=== PATIENT | female | born 1970 | race Caucasian/White ===

== ENCOUNTER 2025-03-25 12:09 | Emergency (ER) | payer BC, SELFPAY ==
--- OUTSIDE RECORDS SUMMARY | 2025-03-17 10:45 | XMS_ITS | Encounter Summary ---
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 Shaper Name Role Phone Chari Drake PROPERTY MAN Primary Care Provider [phone] Reason for Visit * Reason Comments Sore Throat Cough Encounter Details Date Type Department Care Team (Late st Contact Info) Description 03/17/2025 10:45 AM EST Office Visit [facility] [address] [place] [phone] Chari Drake, PROPERTY MAN [address] [place] [address] Sore throat (Primary Dx); Viral syndrome Social History Tobacco Use Types Packs/Day Years Used Date Smoking Tobacco: Every Day Cigarettes 1 40 Smokeless Tobacco: Never Alcohol Use Standard Drinks/Week Comments Yes 0 (1 standard drink = 0.6 oz pur e alcohol) occasional PHQ-2 Answer Date Recorded Retired PHQ-9: Brief Depression Severity Measure Score 0 06/09/2022 PHQ-2 Answer Date Recorded Patient Health Questionnaire-2 Score 0 06/09/2024 Comments No Sex and Gender Information Value Date Recorded Sex Assigned at Not on file Legal Sex Female 2:51 PM EDT Gender Identity Not on file Sexual Orientation Not on file documented as of this encounter Last Filed Vital Signs Vital Sign Reading Time Taken Comments Blood Pressure 132/84 03/17/2025 10:45 AM EST Pulse 64 03/17/2025 10:45 AM EST Temperature 36.3 C (97.3 F) 03/17/2025 10:45 AM EST Respiratory Rate 16 03/17/2025 10:45 AM EST Oxygen Saturation 96% 03/17/2025 10:45 AM EST Inhaled Oxygen Concentration - - Weight 66.2 kg (146 lb) 03/17/2025 10:45 AM EST Height 167.6 cm (5' 6 ) 03/17/2025 10:45 AM EST Body Mass Index 23.57 03/17/2025 10:45 AM EST documented in this encounter Progress Notes * Chari Drake Kevin, PROPERTY MAN - 03/17/2025 10:45 AM EST Images from the original note were not included. Office Note Name: Mariel Philippe : 1970 Chief Complaint Sore Throat and Cough Subjective History of Present Illness The patient is a 55-year-old female who presents for evaluation of a cough and sore throat. She began experiencing symptoms of a cough and sore throat 3 days ago, which have been severe enough to cause her to miss 2 days of work. She also reports nausea and upper respiratory discomfort. Despite taking [id number] flu medication, she has not found relief from her symptoms. SOCIAL HISTORY She admits to smoking cigarettes. Objective Past Medical History: Diagnosis Date Anxiety Depression Hypercholesteremia Hypertension Past Surgical History: Procedure Laterality Date CYST REMOVAL TUMOR REMOVAL Right right side Family History Problem Relation Name Age of Onset Dementia Mother Diabetes Mother Hypertension Mother Depression Mother Vital Signs BP 132/84 (BP Location: Left arm, Patient Position: Sitting, Cuff Size: Adult) Pulse 64 Temp 97.3 ??F (36.3 ??C) (Temporal) Resp 16 Ht 167.6 cm (66 ) Wt 66.2 kg (146 lb) SpO2 96% BMI 23.57 kg/m?? Estimated body mass index is 23.57 kg/m?? as calculated from the following: Height as of this encounter: 167.6 cm (66 ). Weight as of this encounter: 66.2 kg (146 lb). Facility age limit for growth %ziyad is 20 years. Physical Exam Vitals reviewed. Constitutional: Appearance: Normal appearance. HENT: Head: Normocephalic and atraumatic. Right Ear: Tympanic membrane, ear canal and external ear normal. Left Ear: Tympanic membrane, ear canal and external ear normal. Nose: Congestion present. Mouth/Throat: Pharynx: Oropharynx is clear. Posterior oropharyngeal erythema present. Cardiovascular: Rate and Rhythm: Normal rate and regular rhythm. Pulses: Normal pulses. Heart sounds: Normal heart sounds. Pulmonary: Effort: Pulmonary effort is normal. Breath sounds: Normal breath sounds. Musculoskeletal: Cervical back: Neck supple. Skin: General: Skin is warm and dry. Neurological: Mental Status: She is alert and oriented to person, place, and time. POCT Results (if applicable): Results for orders placed or performed in visit on 03/17/25 Covid-19 + Flu A&B AG, Veritor Collection Time: 03/17/25 10:56 AM Specimen: Swab Result Value Ref Range SARS Antigen Not Detected Not Detected, Presumptive Negative Influenza A Antigen TERE Not Detected Not Detected Influenza B Antigen TERE Not Detected Not Detected Internal Control Passed Passed Lot Number [id number] Expiration Date POC Rapid Strep A Collection Time: 03/17/25 10:57 AM Specimen: Swab Result Value Ref Range Rapid Strep A Screen Negative Negative, VALID, INVALID, Not Performed Internal Control Passed Passed Lot Number [id number] Expiration Date Assessment and Plan Diagnoses and all orders for this visit: 1. Sore throat (Primary) - Covid-19 + Flu A&B AG, Veritor - POC Rapid Strep A 2. Viral syndrome - benzonatate (Tessalon Perles) 100 MG capsule; Take 1 capsule by mouth 3 (Three) Times a Day As Needed for Cough. Dispense: 20 capsule; Refill: 0 - fluticasone (FLONASE) 50 MCG/ACT nasal spray; Administer 2 sprays into the nostril(s) as directedby provider Daily. Dispense: 11.1 g; Refill: 0 - methylPREDNISolone (MEDROL) 4 MG dose pack; Take as directed on package instructions. Dispense: 21 tablet; Refill: 0 Assessment & Plan 1. Viral upper respiratory infection. Her symptoms, including coughing and sore throat, are indicative of a viral upper respiratory infection. All tests have returned negative results. A prescription for Tessalon Perles will be sent to [facility] to manage her cough. Additionally, Flonase will be prescribed to alleviate sinus pressure. A short course of steroids will also be provided to further assist in controlling the cough. A work note will be issued for the days she was absent, specifically Thursday, Thursday, and tomorrow. BMI is within normal parameters. No other follow-up for BMI required. Follow Up No follow-ups on file. 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 03/17/2025 12:50 EST Chari Drake APRN documented in this encounter Plan of Treatment Not on file documented as of this encounter Procedures Procedure Name Priority Date/Time Associated Diagnosis Comments POCT RAPID STREP A Routine 03/17/2025 10 :57 AM EST Sore throat COVID-19 + FLU A&B AG, VERITOR Routine 03/17/2025 10:56 AM EST Sore throat documented in this encounter Results * POC Rapid Strep A (03/17/2025 10:57 AM EST) [facility] Rapid Strep A Screen Negative Negative, VALID, INVALID, Not Performed [facility] Internal Control Passed Passed [facility] Lot Number [id number] [facility] Expiration Date [facility] Swab 03/17/2025 10:5 7 AM EST Chari Drake APRN POINT OF CARE TEST ORDERABL ES Final Result [facility]
[address] [place] [address], * Covid-19 + Flu A&B AG, Veritor (03/17/2025 10:56 AM EST) Pathologist [facility] SARS Antigen Not Detected Not Detected, Presumptive Negative Influenza A Antigen TERE Not Detected Not Detected Influenza B Antigen TERE Not Detected Not Detected Internal Control Passed Passed Lot Number [id number] Expiration Date Swab 03/17/2025 10:5 6 AM EST us Chari Drake PROPERTY MAN POINT OF CARE TEST ORDERABL ES Final Result documented in this encounter Visit Diagnoses Diagnosis Sore throat- Primary Acute pharyngitis Viral syndrome Unspecified viral infection, in conditions classified elsewhere and of unspecified site documented in this encounter Additional Health Concerns Infection Onset Date Last Indicated Resolved Time COVID (rule out) 03/17/2025 03/17/2025 03/17/2025 10:57 AM EST documented as of this encounter Care Teams Baseball Glove Shaper Relationship Specialty Start Date End Date Chari Drake, PROPERTY MAN [address] [place] [phone] PCP - General Family Medicine 03/17/22 documented as of this encounter
--- OUTSIDE RECORDS SUMMARY | 2025-03-22 18:30 | XMS_ITS | Continuity of Care Document ---
Author Organization [facility] Phone Care Team Providers Care Biscuitware Brusher Name Role Phone ZOHAIB CONTRERAS Unavailable WILL BUNCH Primary Care ZOHAIB CONTRERAS Admitting ZOHAIB CONTRERAS Primary Attending ALLERGIES AND ADVERSE REACTIONS ALLERGIES AND ADVERSE REACTIONS Code System Allergy Substance Adverse Reaction Date Reaction (Severity) Comment Status Reported By Updated By No Known Allergies [id number] on March 22, 2025 4:43:56 PM UT ASSESSMENTS Cerebrovascular accident ; Right foot drop ; PROBLEMS PATIENT PROBLEMS Code Description/Comments Category Status Upda nasim By [id number] Cerebrovascular accident active [id number] on March 21, 2025 1:28:32 PM UT [id number] Right foot drop active [id number] on March 22, 2025 7:07:57 PM UT RESULTS Patient: JEFF SEBASTIAN Date of : 1970 LABORATORY RESULTS ORDER 100: CBC AUTO W DIFF ( LOINC: 08196-0) ORDER DATE: March 21, 2025 11:16:00 AM UT Specimen Source: Whole Blood Specimen Type: Whole blood s ample PERFORMING LAB: [facility] [id number] Result Comment: Final Result Date: March 21, 2025 11:37:00 AM UT (TECH: LT) LOINC TEST FLAG RESULT REFERENCE RANGE UPDA NASIM BY 6690-2 Leukocytes [#/volume] in Blood by Automated count N 6.1 10^3/uL 4.5 10^3/uL - 11.5 10^3/uL March 21, 2025 11:37:00 AM UTC (TECH: LT) 789-8 Erythrocytes [#/volume] in Blood by Automated count L 3.51 10^6/uL 4.25 10^6/uL - 5.57 10^6/uL March 21, 2025 11:37:00 AM UTC (TECH: LT) 718-7 Hemoglobin [Mass/volume] in Blood L 11.9 g/dL 12.0 g/dL - 15.7 g/dL March 21, 2025 11:37:00 AM UTC (TECH: LT) 35349-7 Hematocrit [Volume Fraction] of Blood N 36.1 % 36.0 % - 47.0 % March 21, 2025 11:37:00 AM UTC (TECH: LT) 787-2 Erythrocyte mean corpuscular volume [Entitic volume] by Automated count H 102.8 fl 80 fl - 95 fl March 21, 2025 11:37:00 AM UTC (TECH: LT) 43354-7 Erythrocyte mean corpuscular hemoglobin [Entitic mass] in Blood from Fetus by Automated count N 33.9 pg 27.0 pg - 34.0 pg March 21, 2025 11:37:00 AM UTC (TECH: LT) 26910-2 Erythrocyte mean corpuscular hemoglobin concentration [Mass/volume] in Blood from Fetus by Automated count N 33.0 g/dL 32.0 g/dL - 36.0 g/dL March 21, 2025 11:37:00 AM UTC (TECH: LT) 69118-0 Platelets [#/volume] in Blood N 218 10^3/uL 150 10^3/uL - 450 10^3/uL March 21, 2025 11:37:00 AM UTC (TECH: LT) 04882-8 Erythrocyte distribution width [Ratio] N 14.1 % 12.3 % - 15.1 % March 21, 2025 11:37:00 AM UTC (TECH: LT) 09551-7 Platelet mean volume [Entitic volume] in Blood by Automated count N 10.0 fl 7.4 fl - 10.4 fl March 21, 2025 11:37:00 AM UTC (TECH: LT) 13895-2 Granulocytes/100 leukocytes in Blood by Automated count N 73.6 % 40 % - 75 % March 21, 2025 11:37:00 AM UTC (TECH: LT) 736-9 Lymphocytes/100 leukocytes in Blood by Automated count N 20.3 % 15 % - 57 % March 21, 2025 11:37:00 AM UTC (TECH: LT) 5905-5 Monocytes/100 leukocytes in Blood by Automated count N 5.2 % 4.0 % - 12.0 % March 21, 2025 11:37:00 AM UTC (TECH: LT) 713-8 Eosinophils/100 leukocytes in Blood by Automated count N 0.2 % 0.0 % - 4.0 % March 21, 2025 11:37:00 AM UTC (TECH: LT) 706-2 Basophils/100 leukocytes in Blood by Automated count N 0.2 % 0.0 % - 1.0 % March 21, 2025 11:37:00 AM UTC (TECH: LT) 92796-7 Immature granulocytes [#/volume] in Blood N 0.5 % 0.0 % - 0.8 % March 21, 2025 11:37:00 AM UTC (TECH: LT) 52526-8 Granulocytes [#/volume] in Blood by Automated count N 4.49 10^3/uL March 21, 2025 11:37:00 AM UTC (TECH: LT) 731-0 Lymphocytes [#/volume] in Blood by Automated count N 1.24 10^3/uL March 21, 2025 11:37:00 AM UTC (TECH: LT) 742-7 Monocytes [#/volume] in Blood by Automated count N 0.32 10^3/uL March 21, 2025 11:37:00 AM UTC (TECH: LT) 711-2 Eosinophils [#/volume] in Blood by Automated count N 0.01 10^3/uL March 21, 2025 11:37:00 AM UTC (TECH: LT) 704-7 Basophils [#/volume] in Blood by Automated count N 0.01 10^3/uL March 21, 2025 11:37:00 AM UTC (TECH: LT) 61517-4 Immature granulocytes [#/volume] in Blood N 0.03 10^3/uL March 21, 2025 11:37:00 AM UTC (TECH: LT) 90986-3 Manual differential performed [Presence] in Blood N NO March 21, 2025 11:37:00 AM UT (TECH: LT) ORDER 200: COMP METABOLIC PA MARIANA (LOINC: 70761-2) ORDER DATE: March 21, 2025 11:16:00 AM UT Specimen Source: Serum/Plasm a Specimen Type: Acellular blo od (serum or plasma) specimen PERFORMING LAB: [address] [id number] Result Comment: Final Result Date: March 21, 2025 12:06:00 PM UT (TECH: LT) LOINC TEST FLAG RESULT REFERENCE RANGE UPDA NASIM BY 2951-2 Sodium [Moles/volume ] in Serum or Plasma N 142 mmol/L 136 mmol/L - 145 mmol/L March 21, 2025 12:06:00 PM UT (TECH: LT) 2823-3 Potassium [Moles/volume] in Serum or Plasma N 3.5 mmol/L 3.5 mmol/L - 5.1 mmol/L March 21, 2025 12:06:00 PM UT (TECH: LT) 2075-0 Chloride [Moles/volume] in Serum or Plasma N 101 mmol/L 98 mmol/L - 107 mmol/L March 21, 2025 12:06:00 PM UT (TECH: LT) 8-9 Carbon dioxide, tota l [Moles/volume] in Serum or Plasma H 34 mmol/L 21 mmol/L - 32 mmol/L March 21, 2025 12:06:00 PM UT (TECH: LT) 61794-0 Anion gap 3 in Serum or Plasma N 7.0 March 21, 2025 12:06:00 PM UT (TECH: LT) 2345-7 Glucose [Mass/volume ] in Serum or Plasma H 121 mg/dL 70 mg/dL - 110 mg/dL March 21, 2025 12:06:00 PM UT (TECH: LT) 3094-0 Urea nitrogen [Mass/volume] in Serum or Plasma H 28 mg/dL 7 mg/dL - 18 mg/dL March 21, 2025 12:06:00 PM UT (TECH: LT) 2160-0 Creatinine [Mass/volume] in Serum or Plasma H 1.2 mg/dL 0.6 mg/dL - 1.0 mg/dL March 21, 2025 12:06:00 PM UT (TECH: LT) 3097-3 Urea nitrogen/Creatinine [Mass Ratio] in Serum or Plasma H 23.3 9 - 21 March 21, 2025 12:06:00 PM UT (TECH: LT) 30713-7 Glomerular filtratio n rate/1.73 sq M.predicted by Creatinine-based formula (MDRD) L 53 mL/min >60 March 21, 2025 12:06:00 PM UT (TECH: LT) 02169-0 Osmolality of Serum or Plasma by calculated by sum of electrolytes H 302 mosm/kg 275 mosm/kg - 301 mosm/kg March 21, 2025 12:06:00 PM UT (TECH: LT) 2885-2 Protein [Mass/volume ] in Serum or Plasma N 7.6 g/dL 6.4 g/dL - 8.2 g/dL March 21, 2025 12:06:00 PM [facility] (TECH: LT) 1751-7 Albumin [Mass/volume ] in Serum or Plasma N 3.9 g/dL 3.4 g/dL - 5.0 g/dL March 21, 2025 12:06:00 PM UT (TECH: LT) 78658-0 Calcium [Mass/volume ] in Serum or Plasma N 9.2 mg/dL 8.5 mg/dL - 10.1 mg/dL March 21, 2025 12:06:00 PM [facility] (TECH: LT) 62143-7 Calcium [Mass/volume ] corrected for total protein in Serum or Plasma N 9.3 mg/dL 8.5 mg/dL - 10.1 mg/dL March 21, 2025 12:06:00 PM UT (TECH: LT) 1975-2 Bilirubin.total [Mass/volume] in Serum or Plasma L 0.3 mg/dL 0.4 mg/dL - 1.5 mg/dL March 21, 2025 12:06:00 PM UT (TECH: LT) 1920-8 Aspartate aminotransferase [Enzymatic activity/volume] in Serum or Plasma H 141 U/L 15 U/L - 37 U/L March 21, 2025 12:06:00 PM UT (TECH: LT) 1742-6 Alanine aminotransferase [Enzymatic activity/volume] in Serum or Plasma H 98 U/L 12 U/L - 78 U/L March 21, 2025 12:06:00 PM UT (TECH: LT) 6768-6 Alkaline phosphatase [Enzymatic activity/volume] in Serum or Plasma N 88 U/L 50 U/L - 120 U/L March 21, 2025 12:06:00 PM [facility] (TECH: LT) ORDER 300: PT PROTHROMBIN TI ME W INR (LOINC: 63181-3) ORDER DATE: March 21, 2025 11:16:00 AM UT Specimen Source: Plasma Specimen Type: Plasma specim en PERFORMING LAB: [address] [id number] Result Comment: Final Result Date: March 21, 2025 11:48:00 AM [facility] (TECH: LT) LOINC TEST FLAG [place] [address]-4 INR in Platelet poor plasma or blood by Coagulation assay N 10.0 seconds 9.1 seconds - 12.0 seconds March 21, 2025 11:48:00 AM [facility] (TECH: LT) 6301-6 INR in Platelet poor plasma by Coagulation assay N 0.91 0.9 - 1.1 March 21, 2025 11:48:00 AM [facility] (TECH: LT) ORDER 400: PTT PARTIAL THROM B TIME (LOINC: 93724-9) ORDER DATE: March 21, 2025 11:16:00 AM UT Specimen Source: Plasma Specimen Type: Plasma specim en PERFORMING LAB: [address] [id number] Result Comment: Final Result Date: March 21, 2025 11:48:00 AM [facility] (TECH: LT) LOINC TEST FLAG [place] [address]-6 Activated partial thromboplastin time (aPTT) in Platelet poor plasma by Coagulation assay L 22.8 seconds 24.5 seconds - 32.8 seconds March 21, 2025 11:48:00 AM UT (TECH: LT) ORDER 800: ALCOHOL ETHANOL Q UANT (LOINC: 5645-7) ORDER DATE: March 21, 2025 11:17:00 AM UT Specimen Source: Serum/Plasm a Specimen Type: Acellular blo od (serum or plasma) specimen PERFORMING LAB: [address] [id number] Result Comment: Final Result Date: March 21, 2025 12:06:00 PM UT (TECH: LT) LOINC TEST FLAG RESULT REFERENCE RANGE UPDA NASIM BY 5645-7 Ethanol [Mass/volume] in Urine H 377 mg/dL 0 mg/dL - 10 mg/dL March 21, 2025 12:06:00 PM UT (TECH: LT) ORDER 900: GLUCOSE BLD METER (LOINC: 55902-6) ORDER DATE: March 21, 2025 11:23:00 AM UTC Specimen Source: Whole Blood Specimen Type: Whole blood s ample PERFORMING LAB: [address] [id number] Result Comment: March 21, 2025 11:23:00 AM UT Test performed by: [id number] ; Instrument: [id number] Final Result Date: March 21, 2025 11:23:00 AM UT (TECH: HL7) LOINC TEST FLAG [place] [address]-1 Glucose [Mass/volume] in Capillary blood by Glucometer H 118 mg/dl 70 mg/dl - 115 mg/dl March 21, 2025 11:23:00 AM UT (TECH: HL7) ORDER 2600: COMP METABOLIC P ENRIQUE (LOINC: 11220-2) ORDER DATE: March 21, 2025 1:33:00 PM UT Specimen Source: Serum/Plasm a Specimen Type: Acellular blo od (serum or plasma) specimen PERFORMING LAB: [address] [id number] Result Comment: Final Result Date: March 22, 2025 11:54:00 AM UT (TECH: LT) LOINC TEST FLAG RESULT REFERENCE RANGE UPDA NASIM BY 2951-2 Sodium [Moles/volume ] in Serum or Plasma N 140 mmol/L 136 mmol/L - 145 mmol/L March 22, 2025 11:54:00 AM UT (TECH: LT) 2823-3 Potassium [Moles/volume] in Serum or Plasma N 3.6 mmol/L 3.5 mmol/L - 5.1 mmol/L March 22, 2025 11:54:00 AM UT (TECH: LT) 2075-0 Chloride [Moles/volume] in Serum or Plasma N 102 mmol/L 98 mmol/L - 107 mmol/L March 22, 2025 11:54:00 AM UT (TECH: LT) 8-9 Carbon dioxide, tota l [Moles/volume] in Serum or Plasma N 27 mmol/L 21 mmol/L - 32 mmol/L March 22, 2025 11:54:00 AM UT (TECH: LT) 50849-7 Anion gap 3 in Serum or Plasma N 11.0 March 22, 2025 11:54:00 AM UTC (TECH: LT) 2345-7 Glucose [Mass/volume ] in Serum or Plasma N 97 mg/dL 70 mg/dL - 110 mg/dL March 22, 2025 11:54:00 AM UTC (TECH: LT) 3094-0 Urea nitrogen [Mass/volume] in Serum or Plasma H 21 mg/dL 7 mg/dL - 18 mg/dL March 22, 2025 11:54:00 AM UTC (TECH: LT) 2160-0 Creatinine [Mass/volume] in Serum or Plasma N 0.9 mg/dL 0.6 mg/dL - 1.0 mg/dL March 22, 2025 11:54:00 AM UT (TECH: LT) 3097-3 Urea nitrogen/Creatinine [Mass Ratio] in Serum or Plasma H 23.3 9 - March 22, 2025 11:54:00 AM UT (TECH: LT) 29840-8 Glomerular filtratio n rate/1.73 sq M.predicted by Creatinine-based formula (MDRD) N 75 mL/min >60 March 22, 2025 11:54:00 AM UT (TECH: LT) 18874-3 Osmolality of Serum or Plasma by calculated by sum of electrolytes N 294 mosm/kg 275 mosm/kg - 301 mosm/kg March 22, 2025 11:54:00 AM UT (TECH: LT) 2885-2 Protein [Mass/volume ] in Serum or Plasma N 6.4 g/dL 6.4 g/dL - 8.2 g/dL March 22, 2025 11:54:00 AM UT (TECH: LT) 1751-7 Albumin [Mass/volume ] in Serum or Plasma N 3.4 g/dL 3.4 g/dL - 5.0 g/dL March 22, 2025 11:54:00 AM UT (TECH: LT) 08670-7 Calcium [Mass/volume ] in Serum or Plasma N 8.6 mg/dL 8.5 mg/dL - 10.1 mg/dL March 22, 2025 11:54:00 AM UTC (TECH: LT) 45424-6 Calcium [Mass/volume ] corrected for total protein in Serum or Plasma N 9.1 mg/dL 8.5 mg/dL - 10.1 mg/dL March 22, 2025 11:54:00 AM [facility] (TECH: LT) 1975-2 Bilirubin.total [Mass/volume] in Serum or Plasma N 0.5 mg/dL 0.4 mg/dL - 1.5 mg/dL March 22, 2025 11:54:00 AM [facility] (TECH: LT) 1920-8 Aspartate aminotransferase [Enzymatic activity/volume] in Serum or Plasma H 82 U/L 15 U/L - 37 U/L March 22, 2025 11:54:00 AM [facility] (TECH: LT) 1742-6 Alanine aminotransferase [Enzymatic activity/volume] in Serum or Plasma N 76 U/L 12 U/L - 78 U/L March 22, 2025 11:54:00 AM [facility] (TECH: LT) 6768-6 Alkaline phosphatase [Enzymatic activity/volume] in Serum or Plasma N 75 U/L 50 U/L - 120 U/L March 22, 2025 11:54:00 AM [facility] (TECH: LT) ORDER 2700: PT PROTHROMBIN T PRADEEP W INR (LOINC: 73645-0) ORDER DATE: March 21, 2025 1:33:00 PM UT Specimen Source: Plasma Specimen Type: Plasma specim en PERFORMING LAB: [address] [id number] Result Comment: Final Result Date: March 22, 2025 11:36:00 AM [facility] (TECH: LT) LOINC TEST FLAG [place]ULT [place] [address]-4 INR in Platelet poor plasma or blood by Coagulation assay N 10.5 seconds 9.1 seconds - 12.0 seconds March 22, 2025 11:36:00 AM [facility] (TECH: LT) 6301-6 INR in Platelet poor plasma by Coagulation assay N 0.96 0.9 - 1.1 March 22, 2025 11:36:00 AM [facility] (TECH: LT) ORDER 2800: HEMOGLOBIN A1C ( LOINC: 4548-4) ORDER DATE: March 21, 2025 1:33:00 PM UT Specimen Source: Whole Blood Specimen Type: Whole blood s ample PERFORMING LAB: [address] [id number] Result Comment: Final Result Date: March 22, 2025 11:54:00 AM UT (TECH: LT) LOINC TEST FLAG RESULT REFERENCE RANGE UPDA NASIM BY 4548-4 Hemoglobin A1c/Hemoglobin.tot al in Blood N 5.9 % 4.5 % - 6.2 % March 22, 2025 11:54:00 AM UT (TECH: LT) 58616-1 Glucose mean value [Mass/volume] in Blood Estimated from glycated hemoglobin N 123 mg/dl 82 mg/dl - 131 mg/dl March 22, 2025 11:54:00 AM UT (TECH: LT) ORDER 2900: LIPID PANEL (JORDAN NC: 72296-3) ORDER DATE: March 21, 2025 1:33:00 PM UT Specimen Source: Serum/Plasm a Specimen Type: Acellular blo od (serum or plasma) specimen PERFORMING LAB: [address] [id number] Result Comment: Final Result Date: March 22, 2025 11:54:00 AM UT (TECH: LT) LOINC TEST FLAG RESULT REFERENCE RANGE UPDA NASIM BY 2571-8 Triglyceride [Mass/volume] in Serum or Plasma N 49 mg/dL 20 mg/dL - 200 mg/dL February 11:54:00 AM UT (TECH: LT) 2093-3 Cholesterol [Mass/volume] in Serum or Plasma H 201 mg/dL 0 mg/dL - 200 mg/dL March 22, 2025 11:54:00 AM UT (TECH: LT) 2085-9 Cholesterol in HDL [Mass/volume] in Serum or Plasma N 113 mg/dL 60 mg/dL March 22 11:54:00 AM UT (TECH: LT) 66664-9 Cholesterol in LDL [Mass/volume] in Serum or Plasma by calculation L 78 mg/dL 100 mg/dL March 22 11:54:00 AM UT (TECH: LT) 2095-8 Cholesterol in HDL/Cholesterol.total [Mass Ratio] in Serum or Plasma N 2 - 5 March 22 11:54:00 AM UT (TECH: LT) LABORATORY NARRATIVE RESULTS Information is not available RADIOLOGY RESULTS ORDER 500: CTA BRAIN NECK (L OINC: 82420-8) ORDER DATE: March 21, 2025 11:16:00 AM UTC PERFORMING LAB: [facility] [address] [facility] [address] [place] [id number] Final Result Date: March 21, 2025 11:35:[address] [place] [address] Name: JAZ AGUILAR Exam Date: 03/21/2025 : 1970 Age 55 years Gender: F Physician: Facility: [facility] Facility HSV: Outpatient Exam: CTA BRAIN NECK EXAM DESCRIPTION: CTA BRAIN NECK CLINICAL HISTORY: 55 years Female Declining State / weakness TECHNIQUE: Following dynamic intravenous nonionic contrast infusion, multiple axial helical CT angiographic images of the head and neck with multiplanar reformation, 3D and MIP reconstructions were performed. All CT scans at this facility use dose modulation, iterative reconstruction, and/or weight based dosing when appropriate to reduce radiation dose to as low as reasonably achievable. Stenosis measurements performed using NASCET criteria. COMPARISONS: None. FINDINGS: CTA HEAD: LEFT: Internal carotid artery: Unremarkable. Anterior cerebral arteries: Unremarkable. Middle cerebral arteries: Unremarkable. Posterior cerebral arteries: Unremarkable. RIGHT: Internal carotid artery: Unremarkable. Anterior cerebral arteries: Unremarkable. Middle cerebral arteries: Unremarkable. Posterior cerebral arteries: Unremarkable. Basilar artery: Unremarkable. Vertebral artery: Unremarkable. Other: No aneurysm. Dural venous sinuses are patent. CTA NECK: Aortic arch: Unremarkable. Brachiocephalic artery: Unremarkable. LEFT Subclavian artery: Unremarkable. Vertebral artery: Unremarkable. Carotid artery: Unremarkable. RIGHT Subclavian artery: Unremarkable. Vertebral artery: Unremarkable. Carotid artery: Unremarkable. Other: Subcutaneous sebaceous cyst anteriorly at the level of the thyroid cartilages measuring 11 x 12 mm. Right thyroid nodules, largest measuring 14 x 8 x 7 mm for which no follow-up imaging is recommended. Multilevel degenerative changes of the spine. Lung apices are clear. Legally authenticated by MERVIN UMANA MD 2025-03-21 06:35:57 IMPRESSION: CTA head: 1. No large vessel occlusion. CTA neck: 1. No acute cervical vascular abnormality. 2. No hemodynamically significant carotid stenosis. Electronically signed by: Andrae Jeffries MD 03/21/2025 06:54 AM [facility] Dictated By: ADNRAE JEFFRIES Transcribed By: Transcribed On: 03/21/2025 6:35 AM Electronically signed by: ANDRAE JEFFRIES 03/21/2025 Thank you for referring JAZ AGUILAR to [facility]. Legally authenticated by MERVIN UMANA MD 2025-03-21 06:35:57 ORDER 600: CT BRAIN STROKE S TAT (LOINC: 15183-7) ORDER DATE: March 21, 2025 11:16:00 AM [facility] PERFORMING LAB: [address] [id number] Final Result Date: March 21, 2025 11:24:[address] [place] [address] Name: JAZ AGUILAR Exam Date: 03/21/2025 : 1970 Age 55 years Gender: F Physician: Facility: [facility] Facility HSV: Outpatient Exam: CT BRAIN STROKE STAT EXAM DESCRIPTION: CT BRAIN STROKE STAT CLINICAL HISTORY: 55 years Female Declining State / weakness TECHNIQUE: Axial noncontrast CT head with coronal and sagittal reformats. All CT scans at this facility use dose modulation, iterative reconstruction, and/or weight based dosing when appropriate to reduce radiation dose to as low as reasonably achievable. COMPARISON: None. FINDINGS: Intracranial: Linear hyperdensity in the right postcentral gyrus measuring 7 mm length in craniocaudal dimension. Rice white matter differentiation is preserved. Ventricles: No hydrocephalus. Orbits: Unremarkable. Sinuses: Partially imaged mild left maxillary sinus mucosal thickening. Mastoid: Clear. Osseous: Unremarkable. Soft tissues: Unremarkable. IMPRESSION: Linear hyperdensity in the right postcentral gyrus measuring 7 mm length in craniocaudal dimension. Differential includes hemorrhage versus cavernous malformation. Recommend MRI brain with and without contrast for further evaluation. Electronically signed by: Andrae Jeffries MD 03/21/2025 06:43 AM [facility] Dictated By: ANDRAE JEFFRIES Transcribed By: Transcribed On: 03/21/2025 6:24 AM Electronically signed by: ANDRAE JEFFRIES 03/21/2025 Thank you for referring JAZ AGUILAR to [facility]. Legally authenticated by MERVIN UMANA MD 2025-03-21 06:24:[address] [place] [address] Name: JAZ AGUILAR Exam Date: 03/21/2025 : 1970 Age 55 years Gender: F Physician: Facility: [facility] Facility HSV: Outpatient Exam: CT BRAIN STROKE STAT EXAM DESCRIPTION: CT BRAIN STROKE STAT CLINICAL HISTORY: 55 years Female Declining State / weakness TECHNIQUE: Axial noncontrast CT head with coronal and sagittal reformats. All CT scans at this facility use dose modulation, iterative reconstruction, and/or weight based dosing when appropriate to reduce radiation dose to as low as reasonably achievable. COMPARISON: None. FINDINGS: Intracranial: Linear hyperdensity in the right postcentral gyrus measuring 7 mm length in craniocaudal dimension. Rice white matter differentiation is preserved. Ventricles: No hydrocephalus. Orbits: Unremarkable. Sinuses: Partially imaged mild left maxillary sinus mucosal thickening. Mastoid: Clear. Osseous: Unremarkable. Soft tissues: Unremarkable. IMPRESSION: Linear hyperdensity in the right postcentral gyrus measuring 7 mm length in craniocaudal dimension. Differential includes hemorrhage versus cavernous malformation. Recommend MRI brain with and without contrast for further evaluation. Electronically signed by: Andrae Jeffries MD 03/21/2025 06:43 AM EST RP Dictated By: ANDRAE JEFFRIES Transcribed By: Transcribed On: 03/21/2025 6:24 AM Electronically signed by: ANDRAE JEFFRIES 03/21/2025 Addendum 1 ADDENDUM #1 THIS REPORT CONTAINS FINDINGS THAT MAY BE CRITICAL TO PATIENT CARE: The findings were verbally discussed via telephone conference with CRISTO MCINTYRE MD on 03/21/2025 at 5:47 AM [facility]. Electronically signed by: Andrae Jeffries MD 03/21/2025 06:47 AM EST RP Legally authenticated by MERVIN UMANA MD 2025-03-21 06:24:24 ORIGINAL REPORT EXAM DESCRIPTION: CT BRAIN STROKE STAT CLINICAL HISTORY: 55 years Female Declining State / weakness TECHNIQUE: Axial noncontrast CT head with coronal and sagittal reformats. All CT scans at this facility use dose modulation, iterative reconstruction, and/or weight based dosing when appropriate to reduce radiation dose to as low as reasonably achievable. COMPARISON: None. FINDINGS: Intracranial: Linear hyperdensity in the right postcentral gyrus measuring 7 mm length in craniocaudal dimension. Rice white matter differentiation is preserved. Ventricles: No hydrocephalus. Orbits: Unremarkable. Sinuses: Partially imaged mild left maxillary sinus mucosal thickening. Mastoid: Clear. Osseous: Unremarkable. Soft tissues: Unremarkable. IMPRESSION: Linear hyperdensity in the right postcentral gyrus measuring 7 mm length in craniocaudal dimension. Differential includes hemorrhage versus cavernous malformation. Recommend MRI brain with and without contrast for further evaluation. Electronically signed by: Andrae Jeffries MD 03/21/2025 06:43 AM [facility] Dictated By: ANDRAE JEFFRIES Dictated Date: 03/21/2025 Electronically signed by: ANDRAE JEFFRIES 03/21/2025 Thank you for referring JAZ AGUILAR to [facility]. Legally authenticated by MERVIN UMANA MD 2025-03-21 06:24:24 ORDER 1700: MRI BRAIN WO ( INC: [id number]) ORDER DATE: March 21, 2025 1:27:00 PM [facility] PERFORMING LAB: [address] [id number] Final Result Date: March 21, 2025 3:57:[address] [place] [address] Name: JAZ AGUILAR Exam Date: 03/21/2025 : 1970 Age 55 years Gender: F Physician: ZOHAIB CONTRERAS Facility: [facility] Facility HSV: Inpatient Exam: MRI BRAIN WO PROCEDURE: MR BRAIN WITHOUT IV CONTRAST, 03/21/2025 9:57 AM [facility] CLINICAL INDICATION: Stroke; r/o hemorrhage. COMPARISON: None TECHNIQUE: Multiplanar, multisequence imaging of the brain without contrast. FINDINGS: Motion limited assessment. Focal diffusion obstruction is seen to the right postcentral gyrus, series 4 image 25, with associated T2/FLAIR hyperintensity and mild ADC hypointensity, concerning for evolving acute to subacute infarct. There is also associated T2/FLAIR hyperintensity at the site, within the limitations of motion limited images.. No acute hemorrhage. No midline shift or mass effect. Mild diffuse cerebral volume loss with prominent sulci and ventriculomegaly. Severe left and moderate right maxillary sinus mucosal thickening. Scattered bilateral moderate ethmoid sinus mucosal thickening. Unremarkable orbits. Remainder of the visualized extracranial soft tissues and bones are unremarkable. IMPRESSION: Motion limited assessment. Findings concerning for evolving acute to subacute infarct in the right postcentral gyrus. Paranasal sinus mucosal thickening. Correlate clinically for sinusitis. Electronically signed by: Dianne Sarah MD 03/21/2025 11:37 AM [facility] Dictated By: DIANNE SARAH Transcribed By: Transcribed On: 03/21/2025 10:57 AM Electronically signed by: DIANNE SARAH 03/21/2025 [facility] [facility] Legally authenticated by KEARA MCINTYRE MD 2025-03-21 10:57:[address] [place] [address] Name: JAZ AGUILAR Exam Date: 03/21/2025 : 1970 Age 55 years Gender: F Physician: ZOHAIB CONTRERAS Facility: [facility] Facility HSV: Inpatient Exam: MRI BRAIN WO PROCEDURE: MR BRAIN WITHOUT IV CONTRAST, 03/21/2025 9:57 AM [facility] CLINICAL INDICATION: Stroke; r/o hemorrhage. COMPARISON: None TECHNIQUE: Multiplanar, multisequence imaging of the brain without contrast. FINDINGS: Motion limited assessment. Focal diffusion obstruction is seen to the right postcentral gyrus, series 4 image 25, with associated T2/FLAIR hyperintensity and mild ADC hypointensity, concerning for evolving acute to subacute infarct. There is also associated T2/FLAIR hyperintensity at the site, within the limitations of motion limited images.. No acute hemorrhage. No midline shift or mass effect. Mild diffuse cerebral volume loss with prominent sulci and ventriculomegaly. Severe left and moderate right maxillary sinus mucosal thickening. Scattered bilateral moderate ethmoid sinus mucosal thickening. Unremarkable orbits. Remainder of the visualized extracranial soft tissues and bones are unremarkable. IMPRESSION: Motion limited assessment. Findings concerning for evolving acute to subacute infarct in the right postcentral gyrus. Paranasal sinus mucosal thickening. Correlate clinically for sinusitis. Electronically signed by: Dianne Sarah MD 03/21/2025 11:37 AM EST RP Dictated By: DIANNE SARAH Transcribed By: Transcribed On: 03/21/2025 10:57 AM Electronically signed by: DIANNE SARAH 03/21/2025 Addendum 1 ADDENDUM #1 The above-mentioned critical findings were communicated to Dr. Contreras on March 21, 2025 at 10:45 AM [facility]. Legally authenticated by KEARA MCINTYRE MD 2025-03-21 10:57:51 Punctate calcific is seen to the adjacent parenchyma on CT are not definitively visualized by MRI. There is no focal susceptibility weighted signal loss on MRI to suggest acute hemorrhage. If vascular malformation is clinically suspected given adjacent parenchymal calcifications on recent head CT, recommend correlation with contrast-enhanced MRI brain for further assessment. Electronically signed by: Dianne Sarah MD 03/21/2025 11:52 AM EST RP ORIGINAL REPORT PROCEDURE: MR BRAIN WITHOUT IV CONTRAST, 03/21/2025 9:57 AM [facility] CLINICAL INDICATION: Stroke; r/o hemorrhage. COMPARISON: None TECHNIQUE: Multiplanar, multisequence imaging of the brain without contrast. FINDINGS: Motion limited assessment. Focal diffusion obstruction is seen to the right postcentral gyrus, series 4 image 25, with associated T2/FLAIR hyperintensity and mild ADC hypointensity, concerning for evolving acute to subacute infarct. There is also associated T2/FLAIR hyperintensity at the site, within the limitations of motion limited images.. No acute hemorrhage. No midline shift or mass effect. Mild diffuse cerebral volume loss with prominent sulci and ventriculomegaly. Severe left and moderate right maxillary sinus mucosal thickening. Scattered bilateral moderate ethmoid sinus mucosal thickening. Unremarkable orbits. Remainder of the visualized extracranial soft tissues and bones are unremarkable. IMPRESSION: Motion limited assessment. Findings concerning for evolving acute to subacute infarct in the right postcentral gyrus. Paranasal sinus mucosal thickening. Correlate clinically for sinusitis. Electronically signed by: Dianne Sarah MD 03/21/2025 11:37 AM [facility] Dictated By: DIANNE SARAH Dictated Date: 03/21/2025 Electronically signed by: DIANNE SARAH 03/21/2025 Thank you for referring JAZ AGUILAR to [facility]. Legally authenticated by KEARA MCINTYRE MD 2025-03-21 10:57:51 ORDER [id number]: CT LUMBAR WO ( INC: [id number]) ORDER DATE: March 22, 2025 4:46:00 PM [facility] PERFORMING LAB: [address] [id number] Final Result Date: March 22, 2025 5:18:[address] [place] [address] Name: JAZ AGUILAR Exam Date: 03/22/2025 : 1970 Age 55 years Gender: F Physician: ZOHAIB CONTRERAS Facility: [facility] Facility HSV: Outpatient Exam: CT LUMBAR WO CT LUMBAR SPINE WITHOUT IV CONTRAST 03/22/2025 11:18 AM [facility] [facility]ER CLINICAL INDICATION: Female, 55 years old. right leg weak, r/o disc herniations COMPARISON: None TECHNIQUE: CT of the lumbar spine was performed without IV contrast. Dose modulation, automated exposure control, and/or interative reconstruction technique used for dose reduction. FINDINGS: Normal alignment lumbar spine. Mild degenerative change with disc space height loss and endplate osteophytes at multiple levels. No evidence of acute fracture. No definite evidence of spinal stenosis. IMPRESSION: Mild degenerative change without evidence of acute fracture or subluxation. Electronically signed by: Tamiko Mata MD 03/22/2025 03:13 PM [facility] Dictated By: Tamiko Mata Transcribed By: Transcribed On: 03/22/2025 12:18 PM Electronically signed by: Tamiko Mata 03/22/2025 Thank you for referring JZA AGUILAR to [facility]. Legally authenticated by KWASI VARELA III, MD 2025-03-22 12:18:00 PATHOLOGY NARRATIVE RESULTS Information is not available MICROBIOLOGY RESULTS No Micro Labs/Results Exist for Patient BLOOD ADMIN RESULTS Information is not available TREATMENT PLAN DISCHARGE MEDICATIONS Status RXNORM Medication Dose Route Frequency Dates Comments U pdated By Continued [id number] losartan potassium (COZAAR) 100 MG ORAL ONCE DAILY Prescribed : March 22, 2025 4:46:57 PM [facility] [id number] on March 22, 2025 4:46:57 PM UT Continued 224867 buPROPion (WELLBUTRIN) 75 MG ORAL ONCE DAILY Prescribed : March 22, 2025 4:46:57 PM [facility] [id number] on March 22, 2025 4:46:57 PM UT Continued [id number] celecoxib (CELEBREX) 200 MG ORAL ONCE DAILY Prescribed : March 22, 2025 4:46:57 PM UT [id number] on March 22, 2025 4:46:57 PM UT Continued 549369 amLODIPine (NORVASC) 5 MG ORAL ONCE DAILY Prescribed : March 22, 2025 4:46:57 PM UT [id number] on March 22, 2025 4:46:57 PM UT Continued [id number] benzonatate (TESSALON PERLES) 100 MG ORAL NEEDED Prescribed : March 22, 2025 4:46:57 PM UT [id number] on March 22, 2025 4:46:57 PM UT Continued [id number] ASPIRIN LOW DOSE 81 MG ORAL ONCE DAILY Prescribed : March 22, 2025 4:46:57 PM UT [id number] on March 22, 2025 4:46:57 PM UT Continued 227279 DULoxetine HCl Oral Capsule Delayed Release Particles 60 MG 60 MG ORAL ONCE DAILY Prescribed : March 22, 2025 4:46:57 PM UT [id number] on March 22, 2025 4:46:57 PM UT Continued [id number] Atorvastatin Calcium Oral Tablet 40 MG 1 TAB ORAL AT BEDTIME Prescribed : March 22, 2025 4:46:57 PM [facility] [id number] on March 22, 2025 4:46:57 PM [facility] PATIENT OPEN ORDERS Code System Descripti on Frequency Occurrenc es Priority Category Start Date Ordering Physicia n Updated By [facility] 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 MEDICATIONS HOME MEDICATIONS Status RXNORM [facility] Medication Dose Route Frequency Dates Comments Reported By Updated By Active [id number] 74786 28960 1 benzonatate (TESSALON PERLES) 100.0 MG ORAL PRN Last Dose: [id number] on March 21, 2025 3:15:44 PM [facility] Active 432223 69325 85582 4 celecoxib (CELEBREX) 200.0 MG ORAL DAILY Last Dose: [id number] on March 21, 2025 3:15:44 PM [facility] Active 670682 29370 72430 1 buPROPion (WELLBUTRIN) 75.0 MG ORAL DAILY Last Dose: [id number] on March 21, 2025 2:49:36 PM [facility] Active 911698 76055 08234 1 amLODIPine (NORVASC) 5.0 MG ORAL DAILY Last Dose: [id number] on March 21, 2025 2:49:46 PM [facility] Active 729741 81242 19668 0 DULoxetine HCl Oral Capsule Delayed Release Particles 60 MG 60.0 MG ORAL DAILY Last Dose: [id number] on March 21, 2025 3:15:14 PM [facility] Active 350192 13072 12719 1 losartan potassium (COZAAR) 100.0 MG ORAL DAILY Last Dose: [id number] on March 21, 2025 2:50:48 PM [facility] Active 61403 23075 0 ASPIRIN LOW DOSE 81.0 MG ORAL DAILY Last Dose: [id number] on March 21, 2025 3:15:44 PM [facility] DISCHARGE MEDICATIONS Status RXNORM [facility] Medication Dose Route Frequency Dates Dis pense Data Comments Physician Updated By Continu ed [id number] 3661 7042 71 losartan potassium (COZAAR) 100.0 MG ORAL ONCE DAILY Prescr ibed: [facility] 2024 4:46:5 7 PM [facility] [id number] on March 22, 2025 4:46:57 PM UT Continu ed 030224 6563 7034 011 buPROPion (WELLBUTRIN ) 75.0 MG ORAL ONCE DAILY Prescr ibed: [facility] 2024 4:46:5 7 PM [facility] [id number] on March 22, 2025 4:46:57 PM UT Continu ed 538818 5888 5152 034 celecoxib (CELEBREX) 200.0 MG ORAL ONCE DAILY Prescr ibed: [facility] 2024 4:46:5 7 PM [facility] [id number] on March 22, 2025 4:46:57 PM UT Continu ed 803969 1879 7048 811 amLODIPine (NORVASC) 5.0 MG ORAL ONCE DAILY Prescr ibed: [facility] 2024 4:46:5 7 PM [facility] [id number] on March 22, 2025 4:46:57 PM UT Continu ed 563394 1220 4021 411 benzonatate (TESSALON PERLES) 100.0 MG ORAL NEEDED Prescr ibed: [facility] 2024 4:46:5 7 PM [facility] [id number] on March 22, 2025 4:46:57 PM UT Continu ed 818958 5296 4675 180 ASPIRIN LOW DOSE 81.0 MG ORAL ONCE DAILY Prescr ibed: [facility] 2024 4:46:5 7 PM UT [facility] [id number] on March 22, 2025 4:46:57 PM UT Continu ed 881216 0532 7007 990 DULoxetine HCl Oral Capsule Delayed Release Particles 60 MG 60.0 MG ORAL ONCE DAILY Prescr ibed: [facility] 2024 4:46:5 7 PM [facility] [id number] on March 22, 2025 4:46:57 [facility] 0664 4082 990 Atorvastati n Calcium Oral Tablet 40 MG 1.0 TAB ORAL AT BEDTIME Prescr ibed: [facility] 2024 4:46:5 7 PM [facility] [id number] on March 22, 2025 4:46:57 PM UT INPATIENT MEDICATIONS Status RXNORM [facility] Medication Dose Route Frequency Rat e Quantity Dates Indication Dispense Data Comments Physician Updated By Ashley inued 230705 2078 3008 302 thiamine (VITAMIN B-1) 100 MG/ML SOLN 500.0 MG INTRAV ENOUS ONE TIME ONLY 250.0 ML/HR Start: [facility] 2024 12:56: 00 PM UTC End: [facility] 2024 2:02:0 4 PM UT FRANCISCO JAVIER Mello MD [id number] on March 21, 2025 2:02:00 PM UTC Discont inued 7898507 1482 3564 904 multiple vitamin (INFUVITE) SOLN 10.0 ML INTRAV ENOUS ONE TIME ONLY 250.0 ML/HR Start: [facility] 2024 12:56: 00 PM UTC End: [facility] 2024 2:02:0 3 PM UTC FRANCISCO JAVIER Mello MD [id number] on March 21, 2025 2:02:00 PM UTC Discont inued 896399 9803 3016 410 FOLIC ACID 5 MG/ML SOLN 1.0 MG INTRAV ENOUS ONE TIME ONLY 250.0 ML/HR Start: [facility] 2024 12:56: 00 PM UTC End: [facility] 2024 2:02:0 3 PM UTC FRANCISCO JAVIER Mello MD [id number] on March 21, 2025 2:02:00 PM UTC Discont inued 3035526 4817 3006 401 magnesium sulfate 50 % SOLN 2.0 GM INTRAV ENOUS ONE TIME ONLY 250.0 ML/HR Start: [facility] 2024 12:56: 00 PM UTC End: [facility] 2024 2:02:0 3 PM UTC FRANCISCO JAVIER Mello MD [id number] on March 21, 2025 2:02:00 PM UTC Discont inued 9497227 0039 0707 904 normal saline (NS) 0.9 % SOLN 1000. 0 ML INTRAV ENOUS ONE TIME ONLY 250.0 ML/HR Start: 2024 12:56: 00 PM UTC End: 2024 2:02:0 3 PM UTC FRANCISCO JAVIER Mello MD [id number] on March 21, 2025 2:02:00 PM UTC Discont inued 664376 9303 7001 125 cyanocobala min (VITAMIN B-12) 1000 MCG/ML SOLN 1000. 0 MCG INTRAM USCULA R ONE TIME ADMINISTRA TION (UNSCHEDUL ED) Start: 2024 12:57: 00 PM UTC End: [facility]2024 4:46:5 7 PM UTC FRANCISCO JAVIER Mello MD [id number] on March 21, 2025 12:57:00 PM UTC Discont inued 770735 2567 6589 488 nicotine TD (NICODERM) 7MG PT24 7.0 MG TRANSD ERMAL ONCE DAILY NEEDED Start: 2024 1:28:0 0 PM UTC End: 2024 4:46:5 7 PM UTC BEN Mello MD [id number] on March 21, 2025 1:31:00 PM UTC Discont inued 983568 4911 3064 400 hydrALAZINE (APRESOLINE ) 20 MG/ML SOLN 20.0 MG INTRAV ENOUS EVERY FOUR HOURS NEEDED Start: 2024 1:28:0 0 PM UTC End: [facility]2024 4:46:5 7 PM UTC BEN Mello MD [id number] on March 21, 2025 1:31:00 PM UTC Discont inued 1252893 2602 9257 934 LABETALOL 5 MG/ML SOLN 10.0 MG INTRAV ENOUS EVERY TWO HOURS NEEDED Start: 2024 1:28:0 0 PM UTC End: [facility]2024 4:46:5 7 PM UTC BEN Mello MD [id number] on March 21, 2025 1:31:00 PM UTC Discont inued 0012 1176 130 MAG-AL PLUS 200-200-20 MG/5 ML LIQD 30.0 ML ORAL EVERY SIX HOURS NEEDED Start: [facility] 2024 1:28:0 0 PM UTC End: [facility] 2024 4:46:5 7 PM UTC BEN Mello MD [id number] on March 21, 2025 1:31:00 PM UTC Discont inued 095847 0285 7044 311 traZODone (DESYREL) 50 MG TABS 50.0 MG ORAL AT BEDTIME NEEDED Start: [facility] 2024 1:28:0 0 PM UTC End: [facility] 2024 4:46:5 7 PM UTC BEN Mello MD [id number] on March 21, 2025 1:31:00 PM UTC Discont inued 163530 2679 7014 601 pantoprazol e (PROTONIX) 40 MG TBEC 40.0 MG ORAL ONCE DAILY Start: [facility] 2024 2:00:0 0 PM UTC End: [facility] 2024 4:46:5 7 PM UTC BEN Mello MD [id number] on March 21, 2025 1:31:00 PM UTC Discont inued 178107 5349 8041 082 enoxaparin (LOVENOX) 40 MG/0.4ML SOSY 40.0 MG SUBCUT ANEOUS ONCE DAILY Start: [facility] 2024 2:00:0 0 PM UTC End: [facility] 2024 4:46:5 7 PM UTC BEN Mello MD [id number] on March 21, 2025 1:31:00 PM UTC Discont inued 769641 3422 0711 509 Sodium Chloride 0.9% + 20KCl SOLN 1000. 0 ML INTRAV ENOUS CONT 100.0 ML/HR Start: [facility] 2024 1:31:0 0 PM UTC End: [facility] 2024 5:25:1 9 AM UTC BEN Mello MD [id number] on March 22, 2025 5:25:00 AM UTC Discont inued 3164314 2321 7062 101 DUONEB 0.5-2.5 MG/3 ML SOLN 1.0 NEB INHALE D EVERY SIX HOURS Start: 2024 5:00:0 0 PM UTC End: 2024 5:00:0 0 PM UTC BEN Mello MD [id number] on March 21, 2025 1:36:00 PM UTC Discont inued 673043 4863 6198 904 budesonide (PULMICORT) 0.5 MG/2ML SUSP 0.5 MG INHALE D TWICE DAILY (RESPIRATO RY) Start: 2024 12:00: 00 AM UTC End: 2024 4:46:5 7 PM UTC BEN Mello MD [id number] on March 21, 2025 1:31:00 PM UTC Discont inued 970449 6637 7950 101 albuterol (VENTOLIN) (2.5 MG/3ML) 0.083% NEBU 2.5 MG INHALE D EVERY TWO HOURS NEEDED (RESPIRATO RY) Start: 2024 1:28:0 0 PM UTC End: 2024 4:46:5 7 PM UTC BEN Mello MD [id number] on March 21, 2025 1:31:00 PM UTC Discont inued 821369 1811 2773 701 insulin lispro 100 UNIT/ML SOLN 1.0 UNT SUBCUT ANEOUS SLIDING SCALE NEEDED Start: 2024 1:28:0 0 PM UTC End: 2024 1:34:1 7 PM UTC BEN Mello MD [id number] on March 21, 2025 1:34:00 PM UTC Discont inued 5385865 0040 9490 264 dextrose SYR (D50) PFS 50 % SOLN 50.0 ML INTRAV ENOUS NEEDED Start: 2024 1:28:0 0 PM UTC End: [facility]2024 4:46:5 7 PM UTC BEN Mello MD [id number] on March 21, 2025 1:34:00 PM UTC Discont inued 5196203 3648 9475 503 ondansetron (ZOFRAN) 4 MG/2ML SOLN 4.0 MG INTRAV ENOUS EVERY EIGHT HOURS NEEDED Start: [facility] 2024 1:28:0 0 PM UTC End: [facility] 2024 4:46:5 7 PM UTC BEN Mello MD [id number] on March 21, 2025 1:31:00 PM UTC Discont inued 921203 7508 6024 064 ondansetron (ZOFRAN) 4 MG TBDP 4.0 MG SUBLIN GUAL EVERY EIGHT HOURS NEEDED Start: [facility] 2024 1:28:0 0 PM UTC End: [facility] 2024 4:46:5 7 PM UTC BEN Mello MD [id number] on March 21, 2025 1:31:00 PM UTC Discont inued 1394 4675 180 ASPIRIN LOW DOSE 81 MG TBEC 81.0 MG ORAL ONCE DAILY Start: [facility] 2024 2:00:0 0 PM UTC End: [facility] 2024 6:47:5 2 PM UTC BEN Mello MD [id number] on March 21, 2025 6:47:00 PM UTC Discont inued 9025614 0064 1047 725 PHENobarbit al 130 MG/ML SOLN 130.0 MG INTRAV ENOUS NOW Start: [facility] 2024 1:31:0 0 PM UTC End: [facility] 2024 4:58:2 4 PM UTC BEN Mello MD [id number] on March 21, 2025 4:58:00 PM UTC Discont inued 273771 2679 8038 111 THIAMINE MONONITRATE 100 MG TABS 100.0 MG ORAL ONCE DAILY Start: [facility] 2024 2:00:0 0 PM UTC End: [facility] 2024 4:46:5 7 PM UTC BEN Mello MD [id number] on March 21, 2025 1:32:00 PM UTC Discont inued 8019 2091 202 CERTAVITE/A NTIOXIDANTS TABS 1.0 TAB ORAL ONCE DAILY Start: [facility] 2024 2:00:0 0 PM UTC End: [facility] 2024 4:46:5 7 PM UTC BEN Mello MD [id number] on March 21, 2025 1:32:00 PM UTC Discont inued 141053 4468 7089 111 folic acid (FOLATE) 1 MG TABS 1.0 MG ORAL ONCE DAILY Start: 2024 2:00:0 0 PM UTC End: 2024 4:46:5 7 PM UTC BEN Mello MD [id number] on March 21, 2025 1:32:00 PM UTC Discont inued 6498 0033 990 MAGNESIUM-O XIDE 400 (240 Mg) MG TABS 400.0 MG ORAL ONCE DAILY Start: 2024 2:00:0 0 PM UTC End: [facility]2024 4:46:5 7 PM UTC BEN Mello MD [id number] on March 21, 2025 1:32:00 PM UTC Discont inued 467809 2002 4032 055 OLANZapine (ZYPREXA ZYDIS) 5 MG TBDP 5.0 MG ORAL EVERY TWO HOURS NEEDED Start: 2024 1:31:0 0 PM UTC End: 2024 4:46:5 7 PM UTC BEN Mello MD [id number] on March 21, 2025 1:32:00 PM UTC Discont inued 591754 0068730227 4399 5355 120 chlordiazeP OXIDE (LIBRIUM) 25 MG CAPS 25.0 MG ORAL EVERY HOUR NEEDED Start: 2024 1:31:0 0 PM UTC End: 2024 4:46:5 7 PM UTC BEN Mello MD [id number] on March 21, 2025 1:32:00 PM UTC Discont inued 0983872 5601 1604 425 LORazepam (ATIVAN) 2 MG/ML SOLN 1.0 MG INTRAV ENOUS EVERY HOUR NEEDED Start: 2024 1:31:0 0 PM UTC End: [facility]2024 4:46:5 7 PM UTC BEN Mello MD [id number] on March 21, 2025 1:32:00 PM UTC Discont inued 932539 2412 9015 120 chlordiazeP OXIDE (LIBRIUM) 25 MG CAPS 50.0 MG ORAL EVERY HOUR NEEDED Start: 2024 1:31:0 0 PM UTC End: 2024 4:46:5 7 PM UTC BEN Mello MD [id number] on March 21, 2025 1:32:00 PM UTC Discont inued 4486882 8234 1604 425 LORazepam (ATIVAN) 2 MG/ML SOLN 2.0 MG INTRAV ENOUS EVERY HOUR NEEDED Start: 2024 1:31:0 0 PM UTC End: 2024 4:46:5 7 PM UTC BEN Mello MD [id number] on March 21, 2025 1:32:00 PM UTC Discont inued 679031 4886 9014 120 chlordiazeP OXIDE (LIBRIUM) 25 MG CAPS 100.0 MG ORAL EVERY HOUR NEEDED Start: 2024 1:31:0 0 PM UTC End: 2024 4:46:5 7 PM UTC BEN Mello MD [id number] on March 21, 2025 1:32:00 PM UTC Discont inued 4911921 3705 1604 425 LORazepam (ATIVAN) 2 MG/ML SOLN 4.0 MG INTRAV ENOUS EVERY HOUR NEEDED Start: 2024 1:31:0 0 PM UTC End: 2024 4:46:5 7 PM UTC BEN Mello MD [id number] on March 21, 2025 1:32:00 PM UTC Discont inued 2265148 6539 7020 101 DUONEB 0.5-2.5 MG/3 ML SOLN 1.0 NEB INHALE D EVERY SIX HOURS (RESPIRATO RY) Start: 2024 6:00:0 0 PM UTC End: 2024 4:46:5 7 PM UTC BEN Mello MD [id number] on March 21, 2025 1:36:00 PM UTC Active 257810 3217 4034 713 losartan potassium (COZAAR) 50 MG TABS 100.0 MG ORAL ONCE DAILY Start: 2024 2:00:0 0 PM UTC End: 2024 10:30: 00 PM UTC BEN Mello MD [id number] on March 21, 2025 3:15:00 PM UTC Discont inued Free Text Med DULoxetine HCl Oral Capsule Delayed Release Particles 60 MG 60.0 MG ORAL ONCE DAILY Start: 2024 2:00:0 0 PM UTC End: 2024 2:00:0 0 PM UTC BEN Mello MD [id number] on March 21, 2025 3:24:00 PM UTC Active 392528 0180 7048 811 amLODIPine (NORVASC) 5 MG TABS 5.0 MG ORAL ONCE DAILY Start: 2024 2:00:0 0 PM UTC End: 2024 10:30: 00 PM UTC BEN Mello MD [id number] on March 21, 2025 3:15:00 PM UTC Active 469462 4293 7034 011 buPROPion (WELLBUTRIN ) 75 MG TABS 75.0 MG ORAL ONCE DAILY Start: 2024 3:16:0 0 PM UTC End: [facility]2024 10:30: 00 PM UTC BEN Mello MD [id number] on March 21, 2025 3:16:00 PM UTC Discont inued 351250 6709 4068 311 DULOXETINE HCL 30 MG CPEP 60.0 MG ORAL ONCE DAILY Start: [facility] 2024 2:00:0 0 PM UTC End: 2024 4:46:5 7 PM UTC BEN Mello MD [id number] on March 21, 2025 3:24:00 PM UTC Discont inued 220254 4829 6123 201 ASPIRIN 325 MG TBEC 325.0 MG ORAL ONCE DAILY Start: [facility]2024 6:47:0 0 PM UTC End: [facility]2024 4:46:5 7 PM UTC BEN Mello MD [id number] on March 21, 2025 6:47:00 PM UTC Discont inued 271546 2604 4053 611 clopidogrel (PLAVIX) 75 MG TABS 75.0 MG ORAL ONCE DAILY Start: [facility] 2024 6:47:0 0 PM UTC End: 2024 4:46:5 7 PM UTC BEN Mello MD [id number] on March 21, 2025 6:47:00 PM [facility] 9773 4009 911 atorvastati n calcium (LIPITOR) 40 MG TABS 40.0 MG ORAL AT BEDTIME Start: 2024 4:46:5 7 PM UTC End: 2024 4:46:5 7 PM UTC [facility] [id number] on March 22, 2025 2:16:00 PM UTC Active XXXX XXX0 063 *PATIENT INFORMATION MISC 1.0 EA SEE COMMEN TS NEEDED Start: 2024 9:06:0 0 PM UTC End: 2024 10:30: 00 PM UTC [facility] [id number] on March 22, 2025 9:06:00 PM UT SOCIAL HISTORY SOCIAL HISTORY - Smoking Status SNOMED-CT Social History Element Description Effective Dates Offered Cessation Comment Updated By [id number] Current Tobacco smoking status Current Every Day Smoker [id number] on March 21, 2025 11:12:14 AM UT SOCIAL HISTORY - Gender Sex: Female SOCIAL HISTORY - Status : status i nformation is not available Intention in Next Year: intention information is not available SOCIAL HISTORY - Assessments Code System Description Status Date Value of Assessment Updated By Comment Assessment Information is no t available SOCIAL HISTORY - Kaw Affiliation Kaw information is not av ailable SOCIAL HISTORY - Legal Sex Legal Sex information is not available SOCIAL HISTORY - Sexual Behavior Sexual Orientation Gender Identity SNOMED-CT Description SNO MED -CT Description Activity Level No of Partners Partner Type UpdatedBy Information is not available SOCIAL HISTORY - Occupation Occupation information is no t available VITAL SIGNS PATIENT VITAL SIGNS This section displays the mo st recent value for each vital sign as of March 22, 2025 11:30:06 PM UT Loinc Code Vital Sign Activity Date Result Updated By 8302-2 Body height March 21 6:32:22 PM UT 167.64 cm (66.0 in) [id number] on March 21, 2025 6:32:22 [place] [address]-2 Body mass index (BMI ) [Ratio] March 21, 2025 6:32:22 PM UTC 18.503 kg/m2 3140-1 Body Surface Area Derived From Formula March 21, 2025 6:32:22 PM UTC 1.5789 m2 8310-5 Body temperature March 22 12:45:00 PM UTC 98.4 [degF] 24480-8 Body weight Measured February 6:32:22 PM UTC 64.0 kg (141.0 lb) [id number] on March 21, 2025 6:32:22 PM UTC 8462-4 Diastolic blood pressure March 22, 2025 12:45:00 PM UTC 78.0 mm[Hg] 8867-4 Heart rate March 22 6:21:00 PM UTC 99 /min 30830-3 Oxygen saturation in Arterial blood by Pulse oximetry March 22, 2025 6:21:00 PM UTC 95.0 % 9279-1 Respiratory rate March 22 6:21:00 PM UTC 18 /min 82220-6 Spirometry panel March 22 11:21:00 AM UTC 10.0 {score} 8480-6 Systolic blood pressure March 22, 2025 12:45:00 PM UTC 115.0 mm[Hg] PEDIATRIC GROWTH CHART - VITAL SIGNS This section displays Head C ircumference Percentile, Weight for Length Percentile and BMI Percentile Loinc Code Pediatric Measure Age (Months) Result Updat ed By No Pediatric Growth Chart Pe rcentile Information Available. HEALTH CONCERNS Problems Concern Status Health Concern problem infor mation not available. Smoking Status Status Years Used Consumed packs p er day Health Concern smoking histo ry information not available. Family History Concern Status Health Concern family histor y information not available. ENCOUNTERS ENCOUNTER INFORMATION Reason for Visit CEREBRAL INFARCTION Admission March 21, 2025 1:33:00 PM UTC [address] [id number] Discharge March 22, 2025 10:30:00 PM UT C DISCHARGED TO HOME OR SELF CARE ENCOUNTER DIAGNOSES Notes information is not bk ilable. Code System Diagnosis Onset Date Diagnosis information is not available. ABSTRACT DIAGNOSES Code System Diagnosis Updated By Abatement Date Abstract Diagnosis informati on is not available. CARE TEAM Care [employer] [facility] Role ZOHAIB CONTRERAS Referring WILL BUNCH Primary Care ZOHAIB CONTRERAS Admitting ZOHAIB CONTRERAS Primary Attending [facility]OSP[facility] DISCHARGE INSTRUCTION DISCHARGE INSTRUCTION Encounter [id number] Admit Date March 21, 2025 1: 33:00 PM [facility] Discharge Date March 22, 2025 10 :30:00 PM [facility] PATIENT EDUCATION SUMMARY Patient/Visit Information: Patient Name: JAZ AGUILAR Diag: Attending Caregiver: BEN Mello MD Discharge Instruction Sheets Provided: * BRBN Stroke && BEFAST Education *[place] Patient Portal *BRBN Social Determinants of Health *BRBN Suicidal Feelings: How to Help Yourself (LPNT) () Living With COPD Smoking\Tobacco Cessation - [facility] () () Alcohol Misuse and Dependence Information, Adult Alcohol Withdrawal Syndrome, Pvte-bd-Sdqk Stroke Prevention, Wxlt-ub-Shxu Patient Instructions: Additional Notes for * BRBN Stroke && BEFAST Education Please follow up with your primary care provider in the next 7-10 days. If your symptoms return, please return to the ER. Please call the telephonic nurse case manager on Thursday for further instructions and a referral to Neurology department. The phone number for the Associate [employer] is [phone]. 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 Location Telecom Status Start Date End Shaw e Updated By BEN GREGG Referring normal March 21, 2025 1:20:34 PM [facility] March 21, 2025 1:52:55 PM [facility] [id number] on March 21, 2025 1:20:34 PM [facility] BEN GREGG Attending normal March 21, 2025 1:20:34 PM [facility] March 21, 2025 1:52:55 PM [facility] [id number] on March 21, 2025 1:20:34 PM [facility] BEN GREGG Admitting normal March 21, 2025 1:20:34 PM [facility] March 21, 2025 1:52:55 PM [facility] [id number] on March 21, 2025 1:20:34 PM [facility] FRANCISCO JAVIER Mello MD, MD Referring normal March 21, 2025 11:43:06 AM [facility] March 21, 2025 1:19:37 PM [facility] [id number] on March 21, 2025 1:20:34 PM [facility] FRANCISCO JAVIER Mello MD, MD Attending normal March 21, 2025 11:43:06 AM [facility] March 21, 2025 1:19:37 PM [facility] [id number] on March 21, 2025 1:20:34 PM [facility] FRANCISCO JAVIER Mello MD, MD Admitting normal March 21, 2025 11:43:06 AM [facility] March 21, 2025 1:19:37 PM [facility] [id number] on March 21, 2025 1:20:34 PM [facility] JULIO C SOLIS APRN PCP normal March 21, 2025 10:52:42 AM [facility] March 21, 2025 1:19:37 PM [facility] [id number] on March 21, 2025 1:20:34 PM [facility]
[2025-03-25 12:15] VITALS: BP 104/74; PULSE 109; O2SAT 93
--- OUTSIDE RECORDS SUMMARY | 2025-03-25 12:17 | XMS_ITS | Encounter Summary ---
Author Organization [facility] Address [address] [place] [address] Care Team Providers Care Linux System Engineer Name Role Phone Chari Drake APRN Primary Care Provider [phone] Encounter Details Date Type Department Care Team (Latest Contact Info) Description 03/17/2025 Travel Social History Tobacco Use Types Packs/Day Years [...] on file documented as of this encounter Plan of Treatment Not on file documented as of this encounter Visit Diagnoses Not on filedocumented in this encounter Additional Health Concerns Infection Onset Date Last Indicated Resolved Time COVID (rule out) 03/17/2025 03/17/2025 03/17/2025 10:57 AM EST documented as of this encounter Care Teams Linux System Engineer Relationship Specialty Start Date End Date Chari Drake APRN [address] [place] [address] PCP - General Family Medicine 03/17/22 documented as of this encounter
--- OUTSIDE RECORDS SUMMARY | 2025-03-25 12:17 | XMS_ITS | Clinical Summary ---
Author Organization [facility] Address [address] [place] [address] Care Team Providers Care [employer] Teacher Name Role Phone Chari Drake ABDIAZIZ Primary Care Provider Allergies No known active allergies Medications cyclobenzaprine (FLEXERIL) 5 MG tabletIndications: Back pain of lumbar region with sciatica TAKE 1 TABLET BY MOUTH 3 TIMES A DAY NEEDED FOR MUSCLE SPASMS. 15 tablet 4 Active rosuvastatin (CRESTOR) 20 MG tabletIndications: Hyperlipidemia, unspecified hyperlipidemia type TAKE 1 TABLET BY MOUTH EVERY DAY AT NIGHT 90 tablet 2 5 Active Budeson-Glycopyrro l-Formoterol (BREZTRI) 160-9-4.8 MCG/ACT aerosol inhaler Inhale 2 puffs 2 (Two) Times a Day. 5.9 g 3 5 Active buPROPion (WELLBUTRIN) 75 MG tabletIndications: Persistent depressive disorder Take 1 tablet by mouth Daily. 90 tablet 5 Active losartan (COZAAR) 100 MG tabletIndications: Primary hypertension TAKE 1 TABLET BY MOUTH EVERY DAY 90 tablet 2 5 Active DULoxetine (CYMBALTA) 60 MG capsuleIndications :Persistent depressive disorder TAKE 1 CAPSULE BY MOUTH EVERY DAY 90 capsule 2 5 Active amLODIPine (NORVASC) 5 MG tabletIndications: Primary hypertension TAKE 1 TABLET BY MOUTH EVERY DAY 90 tablet 2 5 Active benzonatate (Tessalon Perles) 100 MG capsuleIndications :Viral syndrome Take 1 capsule by mouth 3 (Three) Times a Day As Needed for Cough. 20 capsule 5 Active fluticasone (FLONASE) 50 MCG/ACT nasal sprayIndications:V iral syndrome Administer 2 sprays into the nostril(s) as directed by provider Daily. 11.1 g 5 Active methylPREDNISolone (MEDROL) 4 MG dose packIndications:Vi ral syndrome Take as directed on package instructions. 21 tablet 5 Active Active Problems Problem Noted Date Diagnosed Date Ulnar nerve entrapment at elbow, left 11/04/2024 Assessment & Plan (11/24/2024 6:55 AM EDT): Patient last evaluated approximately 2 weeks ago with complaints of numbness in her left arm extending from elbows to her hands. She had developed significant weakness of the left hand. During physical exams findings were consistent with ulnar nerve entrapment, positive elbow flexion test and Froment's test. Patient wanted to first pursue conservative measures, subsequently advised to utilize icing, she was also given course of prednisone at 40 mg daily dosing for 7 days. Patient was also advised to avoid repetitive movements is much as possible as well as utilize [id number] elbow bracing particularly while at work. Patient states that these measures have not provided any resolution to her symptoms and she would like referral to orthopedics at this time. -Referral placed to Dr. Branham Assessment & Plan (11/04/2024 9:21 AM EDT): Patient exam findings and complaints consistent with ulnar nerve entrapment, positive elbow flexion test and Froment's test in office today. We discussed cold compress, will treat possible inflammatory component with course of steroid therapy. Patient also advised to avoid repetitive movements, apply cold compress as able. Patient would like to postpone referral to orthopedics, will reevaluate after completion of conservative measures. We discussed if symptoms persist she would likely undergo nerve conduction study. Declining functional status 09/15/2024 Alcoholism 02/25/2024 Assessment & Plan (11/24/2024 6:58 AM EDT): Patient continues to blandon her alcoholism, developing issues with alcohol conception 4 to 5 years ago. She states this was triggered by being forced to place her mother in a alf due to advanced dementia. 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 Four months ago her alcoholism significantly worsened, at that time increasing her drinking to approximately half a gallon of vodka daily. Patient has been adamant she will not attend inpatient rehab, uninterested in outpatient treatment for her alcoholism as well. Approximately 8 months ago we did attempt to treat her alcohol withdrawal at home with Valium which was unsuccessful. She states the Valium tablets made her too sleepy. Assessment & Plan (06/13/2024 7:41 AM EST): Patient endorses developing issues with alcohol consumption 4 to 5 years ago. She states this was triggered by being forced to place her mother in a alf due to advanced dementia. 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 Unfortunately over the last 5 months patient has increased her drinking to approximately half a gallon of vodka daily. Subsequently she has began to miss work frequently, now her job is in jeopardy. Patient states that she is currently in a cycle of drinking until she passes out and as soon as she awakened she begins to drink again. He is accompanied by her today who is very concerned but patient has been unwilling to seek treatment. She states she did attend one Alcoholic's Anonymous meeting however it just was not for her . Patient was last in the office 4 months ago at which time she was seeking assistance with alcohol withdrawal symptoms, particularly tremor and leg shaking. At that time she was given Valium to assist with withdrawal symptoms, 10 mg every 6 hours on day 1, 10 mg every 8 hours on day 2 and 10 mg every 12 hours on day 3. Patient tells me today that she only took a half of 1 of those Valium tablets and it made her too sleepy so she still has the remaining prescription because she does not like the way it makes her feel. I spent an extended amount of time with patient trying to convince her to let me escort her over to [facility] for admission for alcohol treatment which she adamantly declines. At 1 point patient got up and left the room. I discussed establishing care with behavioral health here in the office which she also declines at this time. She just keeps repeating she would like 5 months to get herself together. I am going to go ahead and fill out her [place] papers. I advised patient if anytime she would like me to escort her to inpatient rehab across the street I am always available. Assessment & Plan (02/25/2024 8:45 AM EDT): Patient has always been a drinker but during some time off work it became a problem and that she was drinking all day long, even having margaritas for breakfast. Patient states that her brought to her attention it was a problem, he is now having to pay her bills. This has prompted her to cease all alcohol use and become sober. Patient has not had a drink in 3 days and has began to have tremors and feel as though she is crawling out of her skin. She denies any altered mental status, dizziness or change in vision. On physical exam she is noted to be having tremors and constant leg shaking. -Will start Valium to assist with withdrawal symptoms as directed. Patient will take 10 mg Valium every 6 hours on day 1, followed by 10 mg Valium every 8 hours on day 2 and Valium 10 mg every 12 hours on day 3. From that point forward patient is instructed to take Valium 10 mg up to twice daily as needed for further withdrawal symptoms. If 10 mg makes patient too drowsy for work we discussed cutting pill in half for 5 mg dosing. She is told about possibility of seizures with withdrawal, signs to look out that would prompt ER visit. She is going to follow-up in our office in about a week Viral syndrome 12/25/2023 Assessment & Plan (12/25/2023 8:40 AM EDT): Testing negative for COVID-19 in office today, however reports positive home test 2 days ago. On auscultation of lungs noted diffuse wheezing in bilateral lower lobes. Patient is to continue her daily Trelegy and as needed albuterol as directed. Will provide Bromfed for cough and congestion. Patient also will receive benefit of oral prednisone 40 mg daily for 7 days. Advised plenty of rest and fluids. We discussed Paxlovid and potential for 40% rebound rate along with risk for GI symptoms, she declines at this time. Patient given work excuse for the last 2 days, today is actually the first day of her vacation. She will advise if no improvement Lateral epicondylitis of right elbow 12/16/2023 Assessment & Plan (12/16/2023 9:48 AM EDT): Patient presents today with complaints of left elbow swelling and pain lasting for the last week. Patient states she has been wearing a band around her right elbow and icing when able. She is also utilize ibuprofen and Tylenol. She states these interventions provided some benefit, but very little. She states the pain originates in the medial aspect of her elbow and at times radiates down her forearm. She denies any numbness or tingling. Physical exam findings with tenderness of the lateral epicondyle upon palpation. There is also some mild swelling noted without warmth or erythema. -Patient advised to get full elbow sleeve type brace to wear particularly at work -Will treat with 7-day course of 40 mg daily steroid -Patient advised to continue cold compress to 4 times daily for duration of 15 to 20 minutes. -Advised if no improvement Close exposure to COVID-19 virus 12/16/2023 Assessment & Plan (12/16/2023 9:46 AM EDT): Works at the [employer] and has had close exposure to multiple cases of COVID-19 virus. To err on the side of caution she requested testing which is negative in office today. Overweight (BMI 25.0-29.9) 07/10/2023 Assessment & Plan (12/16/2023 9:46 AM EDT): Patient's (Body mass index is 25.5 kg/m .) indicates that they are overweight with health conditions that include hypertension and dyslipidemias . Weight is unchanged. BMI is above average; BMI management plan is completed. We discussed portion control and increasing exercise. Assessment & Plan (07/13/2023 12:50 PM EDT): Patient's (Body mass index is 25.5 kg/m .) indicates that they are overweight with health conditions that include hypertension and dyslipidemias . Weight is unchanged. BMI is is above average; BMI management plan is completed. We discussed portion control and increasing exercise. Smoker 07/10/2023 Assessment & Plan (11/24/2024 6:56 AM EDT): Patient 1 pack/day smoker for the last 40 years. SHe has attempted to achieve cessation with use of both Wellbutrin and transdermal nicotine systems. Assessment & Plan (11/04/2024 9:19 AM EDT): Patient 1 pack/day smoker for the last 40 years. SHe has attempted to achieve cessation with use of both Wellbutrin and transdermal nicotine systems. Assessment & Plan (06/13/2024 7:38 AM EST): Patient 1 pack/day smoker for the last 40 years. He has attempted to achieve cessation with use of both Wellbutrin and transdermal nicotine systems. Assessment & Plan (02/25/2024 8:43 AM EDT): Patient 1 pack/day smoker for the last 40 years. He has attempted to achieve cessation with use of both Wellbutrin and transdermal nicotine systems. Assessment & Plan (12/25/2023 8:41 AM EDT): Patient with 1 pack/day smoking habit for the last 40 years. She has attempted to achieve cessation with use of both wellbutrin and patches. Assessment & Plan (07/13/2023 12:51 PM EDT): Patient with 1 pack/day smoking habit for the last 40 years. She has attempted to achieve cessation with use of both wellbutrin and patches. She is agreeable to low-dose CT scan lung cancer screening Annual physical exam 07/10/2023 Hyperlipidemia 10/15/2022 Assessment & Plan (11/24/2024 6:55 AM EDT): Assessment & Plan (07/13/2023 12:52 PM EDT): Patient currently utilizing rosuvastatin 20 mg nightly. Rechecking lipid panel today Assessment & Plan (10/15/2022 6:10 PM EDT): Currently utilizing rosuvastatin 20 mg nightly. We will need to recheck lipid panel during physical in 4 weeks. Back pain of lumbar region with sciatica 023 Assessment & Plan (07/13/2023 12:52 PM EDT): Ascending pattern of intermittent lumbar back pain with sciatica. Her most recent flareup was approximately 3 to 4 months ago. She responds well to course of oral steroids and muscle relaxant. Assessment & Plan (10/15/2022 6:11 PM EDT): Patient reports onset of right-sided low back pain with radiation through right buttock and leg approximately 2 weeks ago. She has utilized [id number]-[id number] NSAIDs with some slight relief. Is a very physically demanding job at [employer]. -We will treat with course of oral steroid and muscle relaxant -If no improvement in symptoms she is to contact our office to pursue diagnostic imaging. Discussed possible benefits of pursuing physical therapy which she declines Persistent depressive disorder 10/14/2022 Assessment & Plan (06/13/2024 7:37 AM EST): Patient has longstanding history of chronic depression anxiety. She has utilized Cymbalta 60 mg and Wellbutrin 75 mg for a number of years. In the past she has had to utilize lorazepam for periods of increased anxiety. In 2021 she required a 2- week leave of absence to address her mental health, treated with therapy services at the [facility]. Assessment & Plan (02/25/2024 8:42 AM EDT): Patient with longstanding history of chronic depression and anxiety with adequate control on daily Cymbalta 60 mg and Wellbutrin 75 mg. She has in the past had to use lorazepam for periods of increased anxiety. In 2021 she required a 2-week leave of absence to address her mental health, treated with therapy services at the [facility]. Assessment & Plan (12/16/2023 9:46 AM EDT): Patient with longstanding history of chronic depression and anxiety with adequate control on daily Cymbalta 60 mg and Wellbutrin 75 mg. She has in the past had to use lorazepam for periods of increased anxiety. In 2021 she required a 2-week leave of absence to address her mental health, treated with therapy services at the [facility]. Assessment & Plan (07/13/2023 12:50 PM EDT): Patient with longstanding history of chronic depression and anxiety with adequate control on daily Cymbalta 60 mg. She has in the past had to use lorazepam for periods of increased anxiety. In 2021 she required a 2-week leave of absence to address her mental health, treated with therapy services at the [facility]. Assessment & Plan (10/15/2022 6:10 PM EDT): Patient with longstanding pattern of depression and anxiety. Currently well controlled on daily Cymbalta 60 mg. Has lorazepam 1 mg as needed for breakthrough anxiety or panic attack. SHe very rarely uses this medication Contusion of toenail of left foot 06/09/2022 Assessment & Plan (06/09/2022 11:42 AM EST): complaints of black toenail for the last 3 weeks. She cannot recall any specific incident of trauma or injury to the toe. Denies any pain, swelling erythema or drainage. He has applied [id number]-tfw-[id number] fungal remedies without improvement. No nail thickening, cracking or breaking noted. -Advised improved toenail will grow off -If nail begins to grow in bruising persist return for further evaluation Varicose veins of both lower extremities with pa in 06/09/2022 Assessment & Plan (06/09/2022 11:44 AM EST): Longstanding issue. She reports now she has started to have burning and pain and varicose that is located posterior knee. She is currently utilizing compression stockings daily. We discussed treatment options including therapy. She declines referral for further evaluation with vein or vascular specialist at this time. Is now aware of her options in the future Primary hypertension 06/09/2022 Assessment & Plan (11/24/2024 6:55 AM EDT): Pressure well-controlled, 120/76 in office today. - Continue amlodipine 5 mg daily -Continue losartan 100 mg daily Assessment & Plan (11/04/2024 9:19 AM EDT): Patient's blood pressure is at goal range in office today, 130/82. She utilizes losartan 100 mg daily as well as amlodipine 5 mg daily. Assessment & Plan (06/13/2024 7:37 AM EST): Blood pressure within acceptable range, 132/84 in office today. She currently utilizes regimen of amlodipine 5 mg daily and losartan 100 mg daily. Assessment & Plan (02/25/2024 8:42 AM EDT): Pressure generally well-controlled but borderline in office today with withdrawal symptoms, 136/84. She currently utilizes regimen of amlodipine 5 mg daily and losartan 100 mg daily. Her blood pressure should improve with use of Valium for withdrawal Assessment & Plan (12/16/2023 9:45 AM EDT): Pressure well-controlled in office today, 128/84. Patient currently utilizing regimen of Steward low Tapin 5 mg daily and losartan 100 mg daily. Patient required adjustment in medications approximately 5 months ago after she had some worsening of her hypertension. This required an increase in her losartan from 50 to 100 mg and the addition of amlodipine. Patient also underwent a renal ultrasound which was without abnormal findings, no signs of stenosis. -Continue amlodipine 5 mg daily -Continue losartan 100 mg daily Assessment & Plan (07/13/2023 1:03 PM EDT): Today she presents for complaint of extreme high blood pressure, in office today 158/104. Patient has longstanding pattern of hypertension, had been well- controlled on regimen of losartan 50mg daily for several years. This dose did require increased to 100 mg daily approximately 9 months ago but was quickly controlled with the increase, blood pressure during last visit was 116/68. She states over the last couple of days she has felt very fatigued, checked her blood pressure at work with elevated readings. She also notes elevated readings at home in the 170s over low 100s range consistently. Denies any accompanying chest pain, shortness of breath, headache or lower extremity edema. The only thing that she has noticed is extreme fatigue. -Will add amlodipine 5 mg once daily. Given sudden onset of hypertension despite antihypertensive agents and heavy smoking history will obtain renal artery duplex for evaluation of possible renal artery stenosis. EKG in office today without abnormalities, normal sinus rhythm noted. Patient advised if blood pressure stays elevated in the 160s to 170s over low 100s she should present to emergency department for further follow-up over the weekend. She should also seek evaluation in the ER if accompanying symptoms that include chest pain, dizziness, shortness of breath or headache occur Assessment & Plan (10/15/2022 6:09 PM EDT): Last visit losartan was increased due to inadequate control on 50 mg dosing. BP now exhibiting excellent control with daily losartan 100 mg. Pressure in office today 116/68. Assessment & Plan (06/09/2022 11:43 AM EST): BP poorly controlled despite daily use of losartan 50 mg. She reports consistently high blood pressures when checking at home, systolic range 160/170 range. Denies any accompanying symptoms including chest pain, shortness of breath, headache or dizziness -Advised low-sodium diet -Increase losartan to 100 mg daily -Encouraged to continue home blood pressure monitoring, will return to office in 4 weeks for reevaluation. If hypertension persists at that time we will likely add hydrochlorothiazide once daily Encounters Date Type Department Care Team Description 03/17/2025 10:45 AM EST Office Visit [facility] [address] [place] [address] [place] [phone] Chari Drake, ABDIAZIZ Sore throat (Primary Dx); Viral syndrome 03/17/2025 Travel 02/10/2025 Telephone [facility] [address] [place] [address] [place] [phone] Chari Drake APRN PATIENT CALLBACK 02/01/2025 Refill [facility] [address] [place] [address] [place] [phone] Chari Drake APRN Primary hypertension 01/19/2025 Refill [facility] [address] [place] [address] [place] [phone] Chari Drake, ABDIAZIZ Persistent depressive disorder 01/18/2025 Refill [facility] [address] [place] [address] [place] [phone] Chari Drake, SCIENTIFIC PROCESS OPERATOR Primary hypertension 01/12/2025 Telephone [facility] [address] [place] [address] [place] [phone] Chari Drake, SCIENTIFIC PROCESS OPERATOR REFERRAL from Last 3 Months Immunizations Immunization Administration Dates Next Due Fluzone (or Fluarix & Flulav al for VFC) >6mos 03/19/2023,01/30/2020 Influenza Seasonal Injectable 01/18/2021 Influenza, Unspecified 02/03/2024,01/18/2021,08/2019 Family History Medical History Relation Name Comments Dementia Mother Depression Mother Diabetes Mother Hypertension Mother Relation Name Status Comments Father Mother Alive Social History Tobacco Use Types Packs/Day Years Used Date Smoking Tobacco: Every Day Cigarettes 1 40 Smokeless Tobacco: Never Tobacco Cessation:Ready to Q uit: Not Asked; Counseling Given: Not Answered Alcohol Use Standard Drinks/Week Comments Yes 0 [...] on file Sexual Orientation Not on file Last Filed Vital Signs Vital Sign Reading [...] Mass Index 23.57 03/17/2025 10:45 AM EST Plan of Treatment Health Maintenance Due Date Last Done Comments Annual Gynecologic Pelvic and Breast Exam 1968 Pneumococcal Vaccine 50+ (1 of 2 - PCV) 01/20/1987 TDAP/TD VACCINES (1 - Tdap) 01/20/1987 MAMMOGRAM 2008 COLON CANCER SCREENING 5 YEAR SIGMOIDOSCOPY 01/20/2013 COLONOSCOPY 01/20/2013 CT COLONOGRAPHY 01/20/2013 FECAL OCCULT BLOOD TEST 01/20/2013 FIT Testing (1 year) 01/20/2013 LUNG CANCER SCREENING 01/20/2018 ZOSTER VACCINE (1 of 2) 01/20/2018 COLOGUARD 08/25/2021 08/25/2018 COLORECTAL CANCER SCREENING 08/25/2021 ANNUAL PHYSICAL 07/09/2024 07/10/2023 LIPID PANEL 07/09/2024 07/10/2023 INFLUENZA VACCINE 09/13/2025 02/03/2024, , 01/18/2021, Additional history exists Postponed from 11/25/2024 (Patient Refused) HEPATITIS C SCREENING Completed 07/10/2023 PAP SMEAR Discontinued Procedures Procedure Name Priority Date/Time Associated Diagnosis Comments POCT RAPID STREP A Routine 03/17/2025 10 :57 AM EST Sore throat COVID-19 + FLU A&B AG, VERITOR Routine 03/17/2025 10:56 AM EST Sore throat LIPID PANEL Routine 07/10/2023 10:57 AM EDT Annual physical exam HEPATITIS C ANTIBODY Routine 07/10/2023 10:57 AM EDT Annual physical exam from Last 3 Months or Most Recently Relevant to Health Maintenance Results * POC Rapid Strep A (03/17/2025 10:57 AM EST) Rapid Strep A Screen Negative Negative, VALID, INVALID, Not Performed [facility] Internal Control Passed Passed [facility] Lot Number [id number] [facility] Expiration Date [facility] Swab 03/17/2025 10:5 7 AM EST Chari Drake SCIENTIFIC PROCESS OPERATOR POINT OF CARE TEST ORDERABL ES Final Result [facility]
[address] [place] [address], * Covid-19 + Flu A&B AG, Veritor (03/17/2025 10:56 AM EST) Pathologist [facility] SARS Antigen Not Detected Not Detected, Presumptive Negative Influenza A Antigen TERE Not Detected Not Detected Influenza B Antigen TERE Not Detected Not Detected Internal Control Passed Passed Lot Number [id number] Expiration Date Swab 03/17/2025 10:5 6 AM EST Chari Drake APRN POINT OF CARE TEST ORDERABL ES Final Result * Hepatitis C Antibody (07/10/2023 10:57 AM EDT) [facility] Hep C Virus Ab Non Reactive Non Reactive [facility] Comment: HCV antibody alone does not differentiate between previously resolved infection and active infection. Equivocal and Reactive HCV antibody results should be followed up with an HCV RNA test to support the diagnosis of active HCV infection. Blood Structure of left upper limb / Unknown 07/10/2023 10:57 AM EDT 07/10/2023 Comment:Blood Release to [facility] Narrative [facility] (AMBULATORY) - 07/11/2023 11:07 AM EDT Performed at: - [address] [id number] Drafter Chief Design: Damian Murry PhD, Phone: [phone] Chari Drake APRN LAB BLOOD ORDERABLES Final Result [facility] ([facility]) [address] [place] [address], [place] [phone] [facility] [address] [place] [address], [place] [phone] * Lipid Panel (07/10/2023 10:57 AM EDT) [facility] Total Cholesterol 158 100 - 199 mg/dL [facility] Triglycerides 80 0 - 149 mg/dL [facility] HDL Cholesterol 77 >39 mg/dL [facility] VLDL Cholesterol Drew 15 5 - 40 mg/dL [facility] LDL Chol Calc (NIH) 66 0 - 99 mg/dL [facility] Blood Structure of left upper limb / Unknown 07/10/2023 10:57 AM EDT 07/10/2023 Comment:Blood Release to donna Bonilla [facility]) - 07/11/2023 11:07 AM EDT Performed at: - [facility] [address] [place], [place] [id number] Drafter Chief Design: Damian Murry PhD, Phone: [phone] us Chari Drake APRN LAB BLOOD ORDERABLES Final Result [facility] ([facility]) [address] [place] [address], [facility] [address] [place] [address], [place] [phone] from Last 3 Months or Most Recently Relevant to Health Maintenance Insurance Care Teams [employer] Teacher Relationship Specialty Start Date End Date Chari Drake APRN [address] [id number] PCP - General Family Medicine 03/17/22
--- OUTSIDE RECORDS SUMMARY | 2025-03-25 12:17 | XMS_ITS | Encounter Summary ---
[facility] Address [address] [place] [address] Care Team Providers Care Food Management Aide Name Role Phone Chari Drake ACTIVITIES LEADER Primary Care Provider [phone] Reason for Visit * Reason Onset Date Comments PATIENT CALLBACK 02/10/2025 Encounter Details Date Type Department Care Team (Late st Contact Info) Description 02/10/2025 Telephone [facility] [address] [place] [phone] Chari Drake, ABDIAZIZ [address] [place] [address] PATIENT CALLBACK Social History Tobacco Use Types Packs/Day Years [...] on file documented as of this encounter Miscellaneous Notes * Telephone Encounter - Valentina Qiu MA - 02/10/2025 3:20 PM EDT Called pt and informed her that we have no orders for an xray. A referral was placed for kimzachroyce back in October and she said she needs to see him in [place]. I informed her she would need to call his office and tell them that. I gave her his number again. * Telephone Encounter - Helen Leyva RegSched Rep - 02/10/2025 2:48 PM EDT Caller: Mariel Philippe Relationship: Self Best call back number: [phone] What is the best time to reach you: ANYTIME Who are you requesting to speak with (clinical staff, provider, specific staff member): PROVIDER ORCLINICAL STAFF What was the call regarding: PATIENT STATES THAT SHE THOUGHT SHE HAD AN ORDER FOR XRAY ON HER NECK & WOULD LIKE TO DISCUSS Is it okay if the provider responds through MyChart: NO PLEASE ADVISE documented in this encounter Plan of Treatment Not on file documented as of this encounter Visit Diagnoses Not on filedocumented in this encounter Care Teams Food Management Aide Relationship Specialty Start Date End Date Chari Drake, ACTIVITIES LEADER [address] [place], [place] [phone] PCP - General Family Medicine 03/17/22 documented as of this encounter
--- OUTSIDE RECORDS SUMMARY | 2025-03-25 12:17 | XMS_ITS | Encounter Summary ---
[facility] Address [address] [place] [address] Care Team Providers Care Bar Tacker Sewing Machine Name Role Phone Chari Drake BOX TOE CEMENTER Primary Care Provider [phone] Reason for Visit * Reason Comments Med Refill Encounter Details Date Type Department Care Team (Late st Contact Info) Description 02/01/2025 Refill [facility] [address] [place] [phone] Chari Drake, BOX TOE CEMENTER [address] [place] [address] Primary hypertension Social History Tobacco Use Types Packs/Day Years [...] encounter Miscellaneous Notes * Telephone Encounter - Chetna Gil MA - 02/01/2025 7:42 AM EDT Rx sent documented in this encounter Plan of Treatment Not on file documented as of this encounter Visit Diagnoses Diagnosis Primary hypertension Unspecified essential hypertension documented in this encounter Care Teams Bar Tacker Sewing Machine Relationship Specialty Start Date End Date Chari Drake APRN [address] [id number] PCP - General Family Medicine 03/17/22 documented as of this encounter
[2025-03-25 12:19] VITALS: BP 104/74; PULSE 96; RESP 20; TEMP 36.8; O2SAT 96; BMI 22.7
[2025-03-25 12:30] VITALS: BP 111/81; PULSE 86; O2SAT 97
--- NOTE | 2025-03-25 12:33 | XR_ITS ---
PROCEDURE INFORMATION: Exam: XR Right Ankle Exam date and time: 03/25/2025 12:41 PM Age: 55 years old Clinical indication: Pain; Ankle; Right; Additional info: Bruise TECHNIQUE: Imaging protocol: Radiologic exam of the right ankle. Views: 3 or more views. COMPARISON: CR XR FOOT RT MIN 3V 03/25/2025 12:41 PM FINDINGS: Bones/joints: No acute fracture or dislocation. Ankle mortise is intact. Soft tissues: Unremarkable. IMPRESSION: No acute osseous abnormality.
--- NOTE | 2025-03-25 12:33 | XR_ITS ---
PROCEDURE INFORMATION: Exam: XR Right Foot Exam date and time: 03/25/2025 12:41 PM Age: 55 years old Clinical indication: Pain; Foot; Right; Additional info: Bruise TECHNIQUE: Imaging protocol: Radiologic exam of the right foot. Views: 3 or more views. COMPARISON: CR XR ANKLE RT MIN 3V 03/25/2025 12:41 PM FINDINGS: Bones/joints: No acute fracture identified. Normal alignment. No aggressive or erosive osseous lesion. Soft tissues: Unremarkable. IMPRESSION: No acute osseous abnormality.
--- NOTE | 2025-03-25 12:35 | ED_ITS ---
<Statement entered by Sudheer Huerta MD - 03/25/25 15:20> I was consulted by the GROVER, and we discussed the complexity of the problems being addressed. I approved the treatment and management plan for this patient's care in the emergency department, thus performing a substantive portion of the medical decision making. Sudheer Huerta MD, CORINNE, FACEP Discharge Plan Disposition Patient Disposition: Home, Self-Care Condition: Good Referrals Follow up/Referrals: Chari Drake APRN [Primary Care Provider, Medical] - See instructions Activity Restrictions/Add. Instructions Additional Instructions/Restrictions: Weightbearing as tolerated rest Ice with cold pack for 20 minutes remove may repeat for comfort every hour Parviz wrap for support and swelling no less in the shower. Be sure not too tight but not to lose either Elevate with ankle above your heart as much as possible to help reduce swelling and therefore pain Tylenol every 4 hours as needed Follow-up immediately if new or worsening symptoms or no noticeable improvement over the next 3-5 days. Follow-up with PCP Clinical Impressions Clinical Impression: Traumatic ecchymosis of right foot Instructions Patient Instructions: DI for Foot Pain Print Language Print Language: Maori Discharge ED Provider: Sudheer Huerta General Adult HPI General Chief complaint: PAIN Stated complaint: Bruising/ swelling pain R leg, Time Seen by Provider: 03/25/25 12:33 Mode of Arrival: Ambulatory Source of Information: Patient and Relative Description of Symptoms (Recalled from ER Triage Doc. by RN): patient presents for right ankle pain that started upon waking this morning. patient states there is swelling adn numbness into her toes. patient stated she was discharged from [facility] 2 days ago from as troke she had on 03/21. the ankle injury is in the affected side from stroke. the ankle does appear ecchymotic and discolored. History of Present Illness HPI narrative: 55-year-old female presents for right foot bruising and swelling. Patient states she was in [facility] days ago for stroke patient states that her right leg was affected from the stroke. Patient reports her foot and ankle was fine after the stroke she did not notice any bruising. Patient states she woke up this a.m. and noticed her ankle was swollen and bruised, does not remember having a fall or injuring her ankle. Related Data Allergies Allergy/AdvReac Type Severity Reaction Status Date / Time No Known Allergies Allergy Verified 03/25/25 12:36 [facility] Disclaimer: The information contained in this section may have been updated after the patient was seen, as this information can be updated by other users. Social History (Updated 03/25/25 @ 13:19 by Sindhu uQiroz ([facility]), BRAKE COUPLER DINKEY) Smoking Status: Light tobacco smoker alcohol intake: current current occupational status: employed Travel in the last 8 weeks?: None Have you lived/traveled outside [place] in past 30 days?: No Contact w/someone who lives/traveled outside US past 30 days?: No Exposure to someone with infectious disease in past 14 days?: No Do you have a fever (greater than 100.4 F or 38 C)?: No Have you tested positive for COVID-19?: No Exposed to someone with COVID-19 in past 14 days?: No Do you have a sore throat?: No Do you have a cough?: No Do you have any weakness?: No Do you have any diarrhea?: No Are you experiencing any unusual bleeding?: No Do you have any muscle aches/pain?: No Do you have any abdominal pain?: No Are you experiencing loss of taste or smell?: No ROS Obtained: Yes Systems reviewed as appropriate & no additional complaints except as documented Musculoskeletal Musculoskeletal: Reports system reviewed and no additional complaints, except as documented, Reports as per HPI, Reports arthralgias, Reports joint swelling and Reports numbness Integumentary/Breasts Skin/Breast: Reports system reviewed and no additional complaints, except as documented and Reports as per HPI Neurologic Neurologic: Reports numbness Physical Exam General General appearance: alert and in no apparent distress ENT ENT exam: Present normal exam Chest Chest inspection: Present normal inspection Respiratory Respiratory exam: Present normal lung sounds bilaterally Cardiovascular Cardiovascular exam: Present regular rate and normal rhythm Abdominal Exam Abdominal exam: Present soft and normal bowel sounds Extremities Exam Extremities exam: Present joint swelling Expanded Lower Extremity Exam Right: Ankle exam: Present tenderness, swelling and ecchymosis Ankle image: 2 1. Bruising and slight swelling Foot/toe exam: Present normal inspection Neurovascular/Tendon exam: Present normal capillary refill Back Exam Back exam: Present normal inspection and full ROM; Absent tenderness Neurological Exam Neurological exam: Present alert and oriented X3 Skin Skin exam: Present warm and intact Medical Decision Making Medical Records Medical records reviewed: Yes I reviewed the patient's medical records. Screening: Per USPSTF and CDC recommendations, given the prevalence of disease in our region, it is our hospital?s policy to screen for HIV and viral Hepatitis for all patients aged 18 and over and those with ongoing risk factors. Horacio Inquiry Pt receiving controlled substance: No Horacio was queried for this patient: No Vital Signs: 03/25/25 12:15 03/25/25 12:19 03/25/25 12:30 Temperature 98.2 F Temperature Source Oral Pulse Rate 109 H 86 Pulse Rate [Right Radial] 96 H Respiratory Rate 20 Blood Pressure 104/74 L 111/81 Blood Pressure [Right Arm] 104/74 L Blood Pressure Mean Blood Pressure Mean [Right Arm] 84 Blood Pressure Source [Right Arm] Automatic Cuff Blood Pressure Position [Right Arm] Sitting 02 Sat by Pulse Oximetry 93 L 96 97 Oxygen Delivery Method Room Air Room Air Room Air 03/25/25 12:46 03/25/25 13:00 Temperature Temperature Source Pulse Rate 96 H 92 H Pulse Rate [Right Radial] Respiratory Rate 18 18 Blood Pressure 103/77 L 106/71 L Blood Pressure [Right Arm] Blood Pressure Mean 86 76 Blood Pressure Mean [Right Arm] Blood Pressure Source [Right Arm] Blood Pressure Position [Right Arm] 02 Sat by Pulse Oximetry 98 98 Oxygen Delivery Method Orders (Tests/Meds): ORDERS Category Date Time Status Foot XR right minimum 3 views [XR foot RT min 3V] Stat Exams 03/25/25 12:33 Completed XR ankle RT min 3V Stat Exams 03/25/25 12:33 Completed Radiology Data #1: Image(s): Ankle Image Reviewed: Yes I have reviewed radiologist's interpretation Preliminary Findings: Normal/NAD #2: Image(s): Foot/Toes Image Reviewed: Yes I have reviewed radiologist's interpretation Preliminary Findings: Normal/NAD Medical Decision Narrative: In summary patient is a 55-year-old female who presents to the emergency department for evaluation of right foot/ankle swelling and bruising. Patient is hemodynamically stable upon arrival, afebrile. Bruising and slight swelling noted full range of motion. Differential diagnosis includes strain or sprain, fracture. Initial workup will be conducted with x-rays. Initial inventions include Parviz wrap. Initial workup reviewed by me ankle and foot x-rays unremarkable. Upon repeat evaluation Parviz wrap applied. Given this patient appropriate for discharge at this time will discharge home with Parviz wrap, rest, elevate, ice, and Tylenol as needed for pain. Follow-up with PCP Critical Care Critical Care Time Critical Care Time: No
[2025-03-25 12:46] VITALS: BP 103/77; PULSE 96; RESP 18; O2SAT 98
[2025-03-25 13:00] VITALS: BP 106/71; PULSE 92; RESP 18; O2SAT 98
[2025-03-25 13:24] VITALS: BP 111/81; PULSE 98; RESP 18; TEMP 36.8; O2SAT 97
== END 2025-03-25 13:37 | disposition home or self-care (01) ==
PROVIDERS: Emergency Provider Student in an Organized Health Care Education/Training Program; PCP Nurse Practitioner
DX: S90.31XA Contusion of right foot, initial encounter (principal); X58.XXXA Exposure to other specified factors, initial encounter; Z86.73 Personal history of transient ischemic attack (TIA), and cerebral infarction without residual deficits; F17.200 Nicotine dependence, unspecified, uncomplicated
CPT/HCPCS: 73610; 73630; 99283